=== PATIENT | female | born 1935 | race Caucasian/White ===

== ENCOUNTER 2017-09-24 01:09 | Emergency (ER) | payer MEDICARE ==
[2017-09-24 02:26] LABS: INR 3.15 (0.85-1.15); PARTIAL THROMBOPLASTIN TIME 36.5 SEC (26.3-35.5); PROTHROMBIN TIME 32.3 SEC (9.6-11.6)
[2017-09-24 02:33] LABS: CARBON DIOXIDE 26 mmol/L (21-32); CHLORIDE 103 mmol/L (101-111); CREATININE 0.8 mg/dL (0.5-1.5); GLOMERULAR FILTR. RATE CALC 73 mL/min (>60); GLUCOSE,RANDOM 114 mg/dL (70-105); POTASSIUM 4.6 mmol/L (3.5-5.1); SODIUM SERUM 138 mmol/L (136-145); UREA NITROGEN, BLOOD 12 mg/dL (7-18)
[2017-09-24 02:41] LABS: APPEARANCE,URINE TURBID (CLEAR); BILIRUBIN,URINE NEGATIVE (NEGATIVE); COLOR,URINE RED (YELLOW); GLUCOSE, URINE (UA) 100 mg/dL (NEGATIVE); KETONES,URINE 15 mg/dL (NEGATIVE); LEUKOCYTE ESTERASE ,URINE MODERATE (NEGATIVE); NITRATE,URINE POSITIVE (NEGATIVE); OCCULT BLOOD,URINE LARGE (NEGATIVE); PROTEIN,URINE >=300 (NEGATIVE)
[2017-09-24 02:41] LABS: HEMATOCRIT 34.7 % (36-48); MEAN CORPUSCULAR HEMOGLOBIN 32.6 pg (27.0-33.0); MEAN CORPUSCULAR HGB CONC 34.7 g/dL (32.0-36.0); MEAN CORPUSCULAR VOLUME 93.9 fL (79-99); PLATELET COUNT (AUTO) 136 K/uL (130-400); RED CELL DISTRIBUTION WIDTH 15.2 % (11.0-15.5); WHITE BLOOD COUNT (AUTO) 3.2 K/uL (4.8-10.8)
[2017-09-24 02:46] LABS: ALANINE AMINOTRANSFERASE 21 U/L (12-78); ALBUMIN 3.8 g/dL (3.5-5.0); ASPARTATE AMINOTRANSFERASE 25 U/L (10-37); BILIRUBIN,TOTAL 0.4 mg/dL (0.2-1.0); CREATINE KINASE MB < 0.5 ng/mL (0.5-3.6); CREATINE KINASE, TOTAL 51 U/L (21-232); TOTAL PROTEIN, SERUM 6.7 g/dL (6.0-8.3)
[2017-09-24 02:54] LABS: BACTERIA,URINE Few /HPF (None Seen); RBC,URINE TNTC /HPF (0-1); SQUAMOUS EPITHELIAL CELL,UR None Seen /LPF (0-2)
[2017-09-24 03:37] LABS: EOSINOPHILS % (MANUAL) 1 % (1-6); LYMPHOCYTES % (MANUAL) 15 % (22-44); MAN.DIFF COMMENT-IMPRESSION MANUAL DIFFERENTIAL; MONOCYTES % (MANUAL) 26 % (2-9); REACTIVE LYMPHOCYTES 14 % (0-0); SEGMENTED NEUTROPHILS % 44 % (40-70)
[2017-09-24 03:38] LABS: PLATELET MORPHOLOGY COMMENT ADEQUATE
[2017-09-24] MEDS ORDERED: SODIUM CHLORIDE 0.9% 1000ML 1,000 ML IV ONE (04:31)
[2017-09-24] MEDS ORDERED: CEFTRIAXONE SODIUM 1 GM ONE (04:31)
[2017-09-24] MEDS ORDERED: PHENAZOPYRIDINE HCL 200 MG TABLET ONE (04:32)
[2018-01-17] MEDS ORDERED: SIMV20TA6 PO (17:05)
[2018-01-17] MEDS ORDERED: HEPARIN SQ (17:05)
[2018-01-17] MEDS ORDERED: WARF-57 PO (17:05)
== END 2017-09-24 05:02 | disposition home or self-care (01) ==
LOC: EDH 01:09
DX: J98.11 Atelectasis (principal); R30.0 Dysuria; R31.9 Hematuria, unspecified; Z88.0 Allergy status to penicillin; Z88.6 Allergy status to analgesic agent
CPT/HCPCS: 36415; 71045; 71250; 80053; 81001; 82550; 82553; 84484; 85025; 85610; 85730; 87088; 93005; 96374; 99285; J0696; J7030

== ENCOUNTER → 2017-10-29 | Outpatient (CLI) | payer MEDICARE ==
[~2017-10-29] MED LIST: CLIN300C3 PO; HEPARIN SQ; SIMV20TA6 PO; TYL3 PO; WARF-57 PO
== END ==
LOC: RAH 11:04
PROVIDERS: ATTEND Orthopaedic Surgery
DX: M16.0 Bilateral primary osteoarthritis of hip (principal)
CPT/HCPCS: 73721

== ENCOUNTER → 2017-10-31 | Outpatient (CLI) | payer MEDICARE ==
[~2017-10-31] MED LIST changes: +IOPAMIDOL-370 75 ML VIAL IV ONE
== END | disposition home or self-care (01) ==
LOC: OIH 07:52
PROVIDERS: ATTEND Urology
DX: K80.20 Calculus of gallbladder without cholecystitis without obstruction (principal); N28.1 Cyst of kidney, acquired; K43.9 Ventral hernia without obstruction or gangrene; Z85.42 Personal history of malignant neoplasm of other parts of uterus
CPT/HCPCS: 74178; Q9967

== ENCOUNTER 2018-01-18 07:59 | Day surgery (SDC) | payer MEDICARE ==
[2018-01-17 16:19] LABS: BASOPHILS % (AUTO) 0.5 % (0.0-5.0); EOSINOPHILS % (AUTO) 1.1 % (0.0-8.0); HEMATOCRIT 32.3 % (36-48); LYMPHOCYTES % (AUTO) 39.4 % (21.0-51.0); MEAN CORPUSCULAR HEMOGLOBIN 31.6 pg (27.0-33.0); MEAN CORPUSCULAR VOLUME 92.8 fL (79-99); NUCLEATED RED BLOOD CELLS 0.1 % (0.0-0.19); PLATELET COUNT (AUTO) 144 K/uL (130-400); RED BLOOD CELL COUNT(AUTO) 3.48 MIL/uL (4.00-5.50); RED CELL DISTRIBUTION WIDTH 16.4 % (11.0-15.5); WHITE BLOOD COUNT (AUTO) 3.2 K/uL (4.8-10.8)
[2018-01-17 16:24] VITALS: BP 144/66
[2018-01-17 16:27] LABS: CREATININE 0.8 mg/dL (0.5-1.5); POTASSIUM 4.2 mmol/L (3.5-5.1)
[2018-01-17 17:47] LABS: INR 1.32 (0.85-1.15); PROTHROMBIN TIME 13.8 SEC (9.6-11.6)
[~2018-01-18] VITALS: Ht 162.6 cm; Wt 64.1 kg
[2018-01-18] VITALS (16 sets, daily range): BP systolic 113–139; BP diastolic 55–82
[~2018-01-18 07:59] MED LIST changes: -CLIN300C3 PO; -IOPAMIDOL-370 75 ML VIAL IV ONE; -TYL3 PO
[2018-01-18] MEDS ORDERED: WATER FOR INJECTION,STERILE 20 ML VIAL IJ ONE (08:00)
[2018-01-18] MEDS ORDERED: CEFAZOLIN SODIUM 1 GM VIAL IVP ONE (08:00)
[2018-01-18] MEDS ORDERED: LACTATED RINGERS 1000ML 1,000 ML IV ONE (09:13)
[2018-01-18] MEDS ORDERED: CLINDAMYCIN 900 MG/D5% WATER 50 ML IV ONE (09:13)
[2018-01-18] MEDS ORDERED: GLYCOPYRROLATE 0.2 MG/ML 5 ML VIAL ONE (09:37)
[2018-01-18] MEDS ORDERED: DEXAMETHASONE SOD PHOSPHATE 10MG/ML 1ML VIAL ONE (09:37)
[2018-01-18] MEDS ORDERED: ONDANSETRON HCL 4 MG/2 ML VIAL ONE (09:37)
[2018-01-18] MEDS ORDERED: LIDOCAINE PF 2% 5ML ABBOJECT ONE (09:37)
[2018-01-18] MEDS ORDERED: PROPOFOL 10 MG/ML 20ML VIAL IV ONE (09:38)
[2018-01-18] MEDS ORDERED: MIDAZOLAM HCL 1 MG/ML 2ML VIAL ONE (09:38)
[2018-01-18] MEDS ORDERED: FENTANYL CITRATE PF 50 MCG/1 ML 2ML VIAL ONE (09:38)
[2018-01-18] MEDS ORDERED: CEFAZOLIN SODIUM 1 GM VIAL ONE (10:00)
[2018-01-18] MEDS ORDERED: CLINDAMYCIN PHOSPHATE 150 MG/ML 6ML VIAL ONE (10:05)
[2018-01-18] MEDS ORDERED: CLIN300C3 PO (10:47)
[2018-01-18] MEDS ORDERED: TYL3 PO (10:47)
[2018-01-18] MEDS ORDERED: MEPERIDINE-PF 25 MG/ML SYG ONE ×2 (10:58→11:09)
== END 2018-01-18 12:40 | disposition home or self-care (01) ==
LOC: DAH 07:59
PROVIDERS: ATTEND Orthopaedic Surgery
DX: M70.62 Trochanteric bursitis, left hip (principal); M70.61 Trochanteric bursitis, right hip; M16.0 Bilateral primary osteoarthritis of hip; G89.29 Other chronic pain; Z85.42 Personal history of malignant neoplasm of other parts of uterus; Z79.899 Other long term (current) drug therapy; Z90.710 Acquired absence of both cervix and uterus; Z98.890 Other specified postprocedural states; Z80.49 Family history of malignant neoplasm of other genital organs; I10 Essential (primary) hypertension; Z79.01 Long term (current) use of anticoagulants; I34.0 Nonrheumatic mitral (valve) insufficiency; Z95.2 Presence of prosthetic heart valve; E78.00 Pure hypercholesterolemia, unspecified; I35.0 Nonrheumatic aortic (valve) stenosis; Z88.0 Allergy status to penicillin; Z88.8 Allergy status to other drugs, medicaments and biological substances
CPT/HCPCS: 27027; 27062; 36415; 80048; 85025; 85610; 88304; A6204; G0168; J1100; J2001; J2175 ×2; J2250; J2405; J2704; J3010; J3490 ×2; J7120; J0690

== ENCOUNTER 2018-07-19 06:15 | Day surgery (SDC) | payer MEDICARE ==
[2018-07-18 14:40] VITALS: BP 145/76
[2018-07-18 15:08] LABS: CREATININE 0.8 mg/dL (0.5-1.5); POTASSIUM 4.2 mmol/L (3.5-5.1)
[2018-07-18 15:12] LABS: INR 2.16 (0.85-1.15); PARTIAL THROMBOPLASTIN TIME 36.4 SEC (26.3-35.5); PROTHROMBIN TIME 22.3 SEC (9.6-11.6)
[2018-07-18 15:20] LABS: BASOPHILS % (AUTO) 0.3 % (0.0-5.0); EOSINOPHILS % (AUTO) 1.2 % (0.0-8.0); LYMPHOCYTES % (AUTO) 34.5 % (21.0-51.0); MEAN CORPUSCULAR HEMOGLOBIN 31.6 pg (27.0-33.0); MEAN CORPUSCULAR HGB CONC 33.4 g/dL (32.0-36.0); MEAN CORPUSCULAR VOLUME 94.6 fL (79-99); MONOCYTES % (AUTO) 28.6 % (3.0-13.0); NEUTROPHILS % (AUTO) 35.4 % (40.0-77.0); NUCLEATED RED BLOOD CELLS 0.1 % (0.0-0.19); PLATELET COUNT (AUTO) 137 K/uL (130-400); RED CELL DISTRIBUTION WIDTH 15.5 % (11.0-15.5); WHITE BLOOD COUNT (AUTO) 3.6 K/uL (4.8-10.8)
[2018-07-19] VITALS (18 sets, daily range): BP systolic 92–140; BP diastolic 41–73
[~2018-07-19] VITALS: Ht 160 cm; Wt 65.1 kg
[~2018-07-19 06:15] MED LIST changes: -HEPARIN SQ; -WARF-57 PO; +WARF5TAB76 PO
[2018-07-19] MEDS ORDERED: LACTATED RINGERS 1000ML 1,000 ML IV ONE (07:01)
[2018-07-19] MEDS ORDERED: CLINDAMYCIN 900 MG/D5% WATER 50 ML IV ONE (07:02)
[2018-07-19] MEDS ORDERED: IOPAMIDOL 10 ML VIAL ONE (07:42)
[2018-07-19] MEDS ORDERED: BUPIVACAINE/PF 0.5% 30ML VIAL ONE (07:43)
[2018-07-19] MEDS ORDERED: LIDOCAINE HCL-MPF 1% 5ML AMP IJ ONE (08:33)
[2018-07-19] MEDS ORDERED: PROPOFOL 10 MG/ML 20ML VIAL IV ONE (08:34)
== END 2018-07-19 11:20 | disposition home or self-care (01) ==
LOC: DAH 06:15 → SUH 06:15
PROVIDERS: ATTEND Orthopaedic Surgery
DX: M16.4 Bilateral post-traumatic osteoarthritis of hip (principal); G89.29 Other chronic pain; E78.5 Hyperlipidemia, unspecified; Z85.42 Personal history of malignant neoplasm of other parts of uterus; Z79.899 Other long term (current) drug therapy; Z98.890 Other specified postprocedural states; Z97.10 Presence of artificial limb (complete) (partial), unspecified; Z88.0 Allergy status to penicillin; Z88.8 Allergy status to other drugs, medicaments and biological substances
CPT/HCPCS: 20610; 36415; 77002; 80048; 85025; 85610; 85730; 93005; J1030; J2704; J3490 ×3; J7120; Q9966

== ENCOUNTER 2018-12-26 18:46 | Observation (INO) | payer MEDICARE ==
[~2018-12-26] VITALS: Ht 160 cm; Wt 64.6 kg
[~2018-12-26 18:46] MED LIST changes: +HEPARIN SQ; +TIMXE255OS OU; +WARF-57 PO; +WARF2.5T85 PO; -WARF5TAB76 PO
[2018-12-26 19:18] LABS: BASOPHILS % (AUTO) 0.5 % (0.0-5.0); EOSINOPHILS % (AUTO) 1.4 % (0.0-8.0); HEMATOCRIT 34.8 % (36-48); LYMPHOCYTES % (AUTO) 30.7 % (21.0-51.0); MEAN CORPUSCULAR HEMOGLOBIN 31.3 pg (27.0-33.0); MEAN CORPUSCULAR HGB CONC 34.3 g/dL (32.0-36.0); MEAN CORPUSCULAR VOLUME 91.4 fL (79-99); MONOCYTES % (AUTO) 22.7 % (3.0-13.0); NEUTROPHILS % (AUTO) 44.7 % (40.0-77.0); PLATELET COUNT (AUTO) 160 K/uL (130-400); RED BLOOD CELL COUNT(AUTO) 3.81 MIL/uL (4.00-5.50); RED CELL DISTRIBUTION WIDTH 16.6 % (11.0-15.5); WHITE BLOOD COUNT (AUTO) 6.1 K/uL (4.8-10.8)
[2018-12-26 19:27] LABS: CREATININE 0.9 mg/dL (0.5-1.5); POTASSIUM 4.1 mmol/L (3.5-5.1)
[2018-12-26] MEDS ORDERED: CEFTRIAXONE SODIUM 1 GM ONE (19:29)
[2018-12-26 19:31] LABS: ALBUMIN 4.3 g/dL (3.5-5.0); BILIRUBIN,TOTAL 0.4 mg/dL (0.2-1.0)
[2018-12-26 19:42] LABS: INR 2.64 (0.85-1.15); PARTIAL THROMBOPLASTIN TIME 40.3 SEC (26.3-35.5); PROTHROMBIN TIME 27.2 SEC (9.6-11.6)
[2018-12-26 19:47] LABS: B-TYPE NATRIURETIC PEPTIDE 143 pg/mL (0-100)
[2018-12-26] MEDS ORDERED: IOHEXOL-350 75 ML VIAL IV ONE (20:50)
[2018-12-27 00:40] VITALS: BP 106/71
[2018-12-27 03:01] LABS: HEMATOCRIT 34.1 % (36-48); MEAN CORPUSCULAR HEMOGLOBIN 31.4 pg (27.0-33.0); MEAN CORPUSCULAR HGB CONC 33.8 g/dL (32.0-36.0); MEAN CORPUSCULAR VOLUME 92.9 fL (79-99); NUCLEATED RED BLOOD CELLS 0.1 % (0.0-0.19); PLATELET COUNT (AUTO) 140 K/uL (130-400); RED BLOOD CELL COUNT(AUTO) 3.67 MIL/uL (4.00-5.50)
[2018-12-27 03:16] VITALS: BP 135/67
[2018-12-27 03:19] LABS: B-TYPE NATRIURETIC PEPTIDE 150 pg/mL (0-100)
[2018-12-27] MEDS: NITROGLYCERIN 1GM/1 INCH PACKET TD SCH ×2 (06:55→12:15)
[2018-12-27 08:00] VITALS: BP 153/81
--- NOTE | 2018-12-27 08:26 | NUR ---
Dr. Summers paged; pending call back, new consult for chest pain.
[2018-12-27 11:49] VITALS: BP 134/72
[2018-12-27 16:00] VITALS: BP 134/72
--- NOTE | 2018-12-27 18:35 | NUR ---
PT. D/C HOME USING TEACH BACK TECHNIQUE RE; NEW MEDS, HOME MEDS, S/S TO WATCH FOR AND WHEN TO CALL MD OR 911. AAOX3, IV OUT INTACT, NO CHEST PAIN AT THIS TIME, DENIES SOB. TELE REMOVED. AWARE TO FOLLOW UP WITH THE FOLLOWING; FOLLOW UP WITH YOUR PRIMARY DOCTOR IN 1-2 WEEKS. CALL TO SET UP AN APPOINTMENT SO HE CAN REFER YOU FOR A FOLLOW UP WITH YOUR DRUG ROOM OPERATOR IN 1-[address]. FOLLOW UP WITH DR. MULLIGAN IN 1-WEEK. CALL TO SET UP AN APPOINTMENT AT PHONE [phone]. CALL 911 IF SHORTNESS OF BREATH OR CHEST PAIN DOES NOT RESOLVE WITH REST. CONTINUE TAKING ALL CURRENT HOME MEDICATIONS BEFORE. AND MAKE SURE TO RESUME CHECKING PT/INR AT HOME BEFORE.
== END 2018-12-27 18:36 | disposition home or self-care (01) ==
LOC: EDH 18:46 → EDHIP 21:55 → INTOOBSV 21:55 → 4CH 12-27 00:29
PROVIDERS: ADMIT Internal Medicine; ATTEND Internal Medicine
DX: R07.89 Other chest pain (principal); H40.9 Unspecified glaucoma; K22.4 Dyskinesia of esophagus; Z79.01 Long term (current) use of anticoagulants; Z95.2 Presence of prosthetic heart valve; Z79.899 Other long term (current) drug therapy
CPT/HCPCS: 36415 ×2; 71045; 71275; 80053; 83690; 83880 ×2; 84484 ×3; 85025; 85027; 85378; 85610; 85730; 93005 ×3; 99284; G0378 ×21; J0696; Q9967

== ENCOUNTER → 2019-06-09 | Outpatient (CLI) | payer MEDICARE ==
[~2019-06-09] MED LIST changes: -HEPARIN SQ; +SIMV-43 PO; -SIMV20TA6 PO
== END | disposition home or self-care (01) ==
LOC: RAH 10:39
PROVIDERS: ATTEND Family Medicine
DX: Z12.31 Encounter for screening mammogram for malignant neoplasm of breast (principal)
CPT/HCPCS: 77067

== ENCOUNTER 2021-07-04 06:24 | Day surgery (SDC) | payer MEDICARE ==
[2021-07-01 09:51] LABS: BASOPHILS % (AUTO) 0.2 % (0.0-5.0); EOSINOPHILS % (AUTO) 1.4 % (0.0-8.0); HEMATOCRIT 32.9 % (36-48); LYMPHOCYTES % (AUTO) 35.1 % (21.0-51.0); MEAN CORPUSCULAR HEMOGLOBIN 31.3 pg (27.0-33.0); MEAN CORPUSCULAR HGB CONC 31.9 g/dL (32.0-36.0); MEAN CORPUSCULAR VOLUME 97.9 fL (79-99); MONOCYTES % (AUTO) 29.8 % (3.0-13.0); NEUTROPHILS % (AUTO) 32.5 % (40.0-77.0); PLATELET COUNT (AUTO) 123 K/uL (130-400); RED BLOOD CELL COUNT(AUTO) 3.36 MIL/uL (4.00-5.50); RED CELL DISTRIBUTION WIDTH 13.8 % (11.0-15.5); WHITE BLOOD COUNT (AUTO) 4.2 K/uL (4.8-10.8)
[2021-07-01 09:59] LABS: CREATININE 0.7 mg/dL (0.5-1.5); POTASSIUM 4.5 mmol/L (3.5-5.1)
[2021-07-01 12:44] VITALS: BP 147/66
[~2021-07-04] VITALS: Ht 160 cm; Wt 60.1 kg
[2021-07-04] VITALS (13 sets, daily range): BP systolic 82–143; BP diastolic 39–78
[~2021-07-04 06:24] MED LIST changes: -TIMXE255OS OU
[2021-07-04] MEDS ORDERED: CEFAZOLIN SODIUM 1 GM VIAL ONE (06:40)
[2021-07-04] MEDS ORDERED: LACTATED RINGERS 1000ML 1,000 ML IV ONE (06:40)
[2021-07-04] MEDS ORDERED: CLINDAMYCIN IVPB 900MG/50ML 50 ML IV ONE (07:11)
[2021-07-04] MEDS ORDERED: BUPIVACAINE/PF 0.5% 10ML VIAL ONE (07:21)
[2021-07-04] MEDS ORDERED: LIDOCAINE PF 100MG/5ML (2%) SYRINGE 5ML ONE (07:52)
[2021-07-04] MEDS ORDERED: MIDAZOLAM HCL 1 MG/ML 2ML VIAL ONE (07:52)
[2021-07-04] MEDS ORDERED: ONDANSETRON 4MG INJ ONE (07:52)
[2021-07-04] MEDS ORDERED: DEXAMETHASONE SOD PHOSPHATE 10MG/ML 1ML VIAL ONE (07:52)
[2021-07-04] MEDS ORDERED: PROPOFOL 10 MG/ML 20ML VIAL IV ONE (07:52)
[2021-07-04] MEDS ORDERED: FENTANYL CITRATE PF 50 MCG/1 ML 2ML VIAL ONE (07:52)
[2021-07-04] MEDS ORDERED: MEPERIDINE-PF 25 MG/ML SYG ONE (07:54)
[2021-07-04] MEDS ORDERED: IOPAMIDOL 10 ML VIAL ONE (08:12)
[2021-07-04] MEDS ORDERED: GLYCOPYRROLATE 1 MG/5 ML SYRINGE ONE (09:04)
== END 2021-07-04 10:05 | disposition home or self-care (01) ==
LOC: DAH 06:24
PROVIDERS: ATTEND Orthopaedic Surgery
DX: M16.11 Unilateral primary osteoarthritis, right hip (principal); G89.29 Other chronic pain; I25.10 Atherosclerotic heart disease of native coronary artery without angina pectoris; K21.9 Gastro-esophageal reflux disease without esophagitis; E78.5 Hyperlipidemia, unspecified; Z90.710 Acquired absence of both cervix and uterus; Z98.890 Other specified postprocedural states; Z79.899 Other long term (current) drug therapy; Z20.822 Contact with and (suspected) exposure to COVID-19
CPT/HCPCS: 20610; 36415; 77002; 80048; 85025; 87635; A4215; A4221; A4222; A4223; A4663; A5120; C9803; J1030; J1100; J2001; J2175; J2250; J2405; J2704; J3010; J3490 ×3; J7120; Q9966; 27093; J0690

== ENCOUNTER → 2021-10-04 | Outpatient (CLI) | payer MEDICARE | END | disposition home or self-care (01) | LOC: RAH 15:34 | PROVIDERS: ATTEND Physical Medicine & Rehabilitation | DX: M47.816 Spondylosis without myelopathy or radiculopathy, lumbar region (principal); M48.061 Spinal stenosis, lumbar region without neurogenic claudication; M41.86 Other forms of scoliosis, lumbar region; M43.5X6 Other recurrent vertebral dislocation, lumbar region; K80.20 Calculus of gallbladder without cholecystitis without obstruction; Z95.828 Presence of other vascular implants and grafts; Z88.6 Allergy status to analgesic agent; Z88.0 Allergy status to penicillin | CPT/HCPCS: 72114 ==

== ENCOUNTER 2021-12-30 06:26 | Day surgery (SDC) | payer MEDICARE ==
[2021-12-29 10:09] LABS: BASOPHILS % (AUTO) 0.2 % (0.0-5.0); EOSINOPHILS % (AUTO) 0.8 % (0.0-8.0); HEMATOCRIT 33.4 % (36-48); LYMPHOCYTES % (AUTO) 27.9 % (21.0-51.0); MEAN CORPUSCULAR HEMOGLOBIN 30.4 pg (27.0-33.0); MEAN CORPUSCULAR HGB CONC 32.3 g/dL (32.0-36.0); MEAN CORPUSCULAR VOLUME 94.1 fL (79-99); MONOCYTES % (AUTO) 27.1 % (3.0-13.0); PLATELET COUNT (AUTO) 120 K/uL (130-400); RED BLOOD CELL COUNT(AUTO) 3.55 MIL/uL (4.00-5.50); RED CELL DISTRIBUTION WIDTH 14.3 % (11.0-15.5)
[2021-12-29 10:26] LABS: CREATININE 0.7 mg/dL (0.5-1.5); POTASSIUM 4.7 mmol/L (3.5-5.1)
[2021-12-29 11:18] LABS: INR 2.57 (0.85-1.15); PROTHROMBIN TIME 26.6 SEC (9.6-11.6)
[2021-12-29 11:20] LABS: PARTIAL THROMBOPLASTIN TIME 36.5 SEC (26.3-35.5)
[2021-12-29 12:17] VITALS: BP 166/65
[~2021-12-30] VITALS: Ht 160 cm; Wt 57.8 kg
[2021-12-30] VITALS (15 sets, daily range): BP systolic 131–160; BP diastolic 51–74
[~2021-12-30 06:26] MED LIST changes: +CARV6.25 PO; +CLINDAMYCIN IVPB 900MG/50ML 50 ML IV ONE; +LACTATED RINGERS 1000ML 1,000 ML IV ONE; +OMEP20CA12 PO; -WARF2.5T85 PO; +WARF7.5T49 PO
[2021-12-30] MEDS ORDERED: WARF-57 PO (07:01)
[2021-12-30 07:35] LABS: INR 2.65 (0.85-1.15); PROTHROMBIN TIME 27.3 SEC (9.6-11.6)
[2021-12-30] MEDS ORDERED: LIDOCAINE HCL 1% MDV 50ML VIAL ONE (07:35)
[2021-12-30] MEDS ORDERED: BUPIVACAINE/PF 0.25% 30ML VIAL IJ ONE (07:35)
[2021-12-30] MEDS ORDERED: IOPAMIDOL 10 ML VIAL ONE (07:39)
[2021-12-30] MEDS ORDERED: PROPOFOL 10 MG/ML 20ML VIAL IV ONE (07:44)
[2021-12-30] MEDS ORDERED: SUCCINYLCHOLINE CHLORIDE 20 MG/ML 10 ML VIAL ONE (07:44)
[2021-12-30] MEDS ORDERED: CEFAZOLIN SODIUM 1 GM VIAL IVP ONE (08:00)
== END 2021-12-30 09:35 | disposition home or self-care (01) ==
LOC: DAH 06:26
PROVIDERS: ATTEND Student in an Organized Health Care Education/Training Program
DX: M16.11 Unilateral primary osteoarthritis, right hip (principal); E78.5 Hyperlipidemia, unspecified; Z79.899 Other long term (current) drug therapy; Z98.890 Other specified postprocedural states; Z79.01 Long term (current) use of anticoagulants; Z88.0 Allergy status to penicillin; Z90.49 Acquired absence of other specified parts of digestive tract; Z90.710 Acquired absence of both cervix and uterus; Z82.3 Family history of stroke; Z80.8 Family history of malignant neoplasm of other organs or systems; Z72.89 Other problems related to lifestyle
CPT/HCPCS: 20610; 36415 ×2; 73503; 80048; 85025; 85610 ×2; 85730 ×2; 87635; A4215; A4221; A4222; A4223; A4663; C9803; J0330; J1030; J2704; J3490 ×3; J7120; Q9966

== ENCOUNTER 2022-11-03 05:57 | Day surgery (SDC) | payer MEDICARE ==
[2022-11-01 10:09] VITALS: BP 173/67
[2022-11-01 10:19] LABS: BASOPHILS % (AUTO) 0.3 % (0.0-5.0); EOSINOPHILS % (AUTO) 1.1 % (0.0-8.0); HEMATOCRIT 32.8 % (36-48); LYMPHOCYTES % (AUTO) 36.7 % (21.0-51.0); MEAN CORPUSCULAR HGB CONC 32.9 g/dL (32.0-36.0); MEAN CORPUSCULAR VOLUME 94.3 fL (79-99); MONOCYTES % (AUTO) 27.2 % (3.0-13.0); NEUTROPHILS % (AUTO) 33.3 % (40.0-77.0); PLATELET COUNT (AUTO) 147 K/uL (130-400); RED BLOOD CELL COUNT(AUTO) 3.48 MIL/uL (4.00-5.50); RED CELL DISTRIBUTION WIDTH 14.4 % (11.0-15.5); WHITE BLOOD COUNT (AUTO) 3.7 K/uL (4.8-10.8)
[2022-11-01 10:49] LABS: CREATININE 0.7 mg/dL (0.5-1.5); CRP QUANTITATIVE 8.7 mg/L (0.00-9.0); POTASSIUM 4.7 mmol/L (3.5-5.1)
[2022-11-03] VITALS (14 sets, daily range): BP systolic 118–172; BP diastolic 52–85
[~2022-11-03] VITALS: Ht 160 cm; Wt 59.1 kg
[~2022-11-03 05:57] MED LIST changes: +ASPI-1005 PO; -CLINDAMYCIN IVPB 900MG/50ML 50 ML IV ONE; -LACTATED RINGERS 1000ML 1,000 ML IV ONE; +PHARMACY COMMUNICATION MISC SCH; -SIMV-43 PO; +TIMOLOL OU; -WARF7.5T49 PO
[2022-11-03] MEDS ORDERED: CEFAZOLIN SODIUM 1 GM VIAL IVPB SCH (06:00)
[2022-11-03] MEDS ORDERED: BUPIVACAINE/PF 0.25% 10ML VIAL IJ ONE ×2 (06:55→07:39)
[2022-11-03] MEDS ORDERED: MIDAZOLAM HCL 1 MG/ML 2ML VIAL ONE (07:28)
[2022-11-03] MEDS ORDERED: PROPOFOL 10 MG/ML 20ML VIAL IV ONE (07:29)
[2022-11-03] MEDS ORDERED: FENTANYL CITRATE PF 50 MCG/1 ML 2ML VIAL ONE (07:29)
[2022-11-03 07:30] LABS: INR 1.67 (0.85-1.15); PROTHROMBIN TIME 17.7 SEC (9.6-11.6)
[2022-11-03 07:31] LABS: PARTIAL THROMBOPLASTIN TIME 31.6 SEC (26.3-35.5)
[2022-11-03] MEDS ORDERED: IOHEXOL 180 MG/ML 20 ML VIAL ONE (07:38)
[2022-11-03] MEDS ORDERED: ISOVUE-300 100 ML VIAL IV ONE (07:39)
== END 2022-11-03 09:10 | disposition home or self-care (01) ==
LOC: DAH 05:57
PROVIDERS: ATTEND Student in an Organized Health Care Education/Training Program
DX: M16.11 Unilateral primary osteoarthritis, right hip (principal); Z20.822 Contact with and (suspected) exposure to COVID-19; G89.29 Other chronic pain; E78.5 Hyperlipidemia, unspecified; Z79.01 Long term (current) use of anticoagulants; Z79.899 Other long term (current) drug therapy; Z88.8 Allergy status to other drugs, medicaments and biological substances; Z88.0 Allergy status to penicillin
CPT/HCPCS: 87426; 82040; 80048; 85025; 84134; 86140; 36415 ×2; 93005; 20610; 85610; 85730; 77002; A4663; Q9967; J3010; J2250; J2704; J1030 ×2; J3490 ×2; A5120; A4215; A4223; A4222; A4221; Q9965

== ENCOUNTER → 2023-04-25 | Outpatient (CLI) | payer MEDICARE ==
[~2023-04-25] MED LIST changes: -PHARMACY COMMUNICATION MISC SCH
== END | disposition home or self-care (01) ==
LOC: RAH 08:20
PROVIDERS: ATTEND Family Medicine
DX: Z78.0 Asymptomatic menopausal state (principal)
CPT/HCPCS: 77080

== ENCOUNTER 2024-03-27 13:00 | Observation (INO) | payer MEDICARE ==
[~2024-03-27] VITALS: Ht 160 cm; Wt 53.2 kg
[~2024-03-27 13:00] MED LIST changes: -ASPI-1005 PO; -TIMOLOL OU
[2024-03-27 13:37] VITALS: BP 177/79; PULSE 63; RESP 18
[2024-03-27 13:38] LABS: BASOPHILS # (AUTO) 0.01 K/uL (0.00-0.20); BASOPHILS % (AUTO) 0.2 % (0.0-5.0); EOSINOPHILS # (AUTO) 0.07 K/uL (0.00-0.70); EOSINOPHILS % (AUTO) 1.3 % (0.0-8.0); HEMATOCRIT 27.4 % (36-48); IMMATURE GRANULOCYTE ABSOLUTE 0.06 K/uL (0-1); LYMPHOCYTES # (AUTO) 1.3 K/uL (1.0-4.8); MEAN CORPUSCULAR HEMOGLOBIN 30.2 pg (27.0-33.0); MEAN CORPUSCULAR HGB CONC 32.1 g/dL (32.0-36.0); MEAN CORPUSCULAR VOLUME 94.2 fL (79-99); MONOCYTES # (AUTO) 1.4 K/uL (0.1-1.0); MONOCYTES % (AUTO) 26.2 % (3.0-13.0); NEUTROPHILS # (AUTO) 2.5 K/uL (1.8-7.7); NEUTROPHILS % (AUTO) 47.2 % (40.0-77.0); PLATELET COUNT (AUTO) 163 K/uL (130-400); RED BLOOD CELL COUNT(AUTO) 2.91 MIL/uL (4.00-5.50); RED CELL DISTRIBUTION WIDTH 14.7 % (11.0-15.5); WHITE BLOOD COUNT (AUTO) 5.3 K/uL (4.8-10.8)
[2024-03-27 13:51] LABS: INR 2.51 (0.85-1.15); PROTHROMBIN TIME 25.3 SEC (9.6-11.6)
[2024-03-27 13:52] LABS: PARTIAL THROMBOPLASTIN TIME 35.9 SEC (26.3-35.5)
[2024-03-27 14:17] LABS: APPEARANCE,URINE CLEAR (CLEAR); BILIRUBIN,URINE NEGATIVE (NEGATIVE); COLOR,URINE LIGHT-YELLOW (YELLOW); GLUCOSE, URINE (UA) NEGATIVE (NEGATIVE); KETONES,URINE NEGATIVE (NEGATIVE); LEUKOCYTE ESTERASE ,URINE NEGATIVE Leu/uL (NEGATIVE); NITRATE,URINE NEGATIVE (NEGATIVE); OCCULT BLOOD,URINE MODERATE (NEGATIVE); PROTEIN,URINE NEGATIVE (NEGATIVE); UROBILINOGEN,URINE 0.2 mg/dL (0.2-1.0)
[2024-03-27] MEDS ORDERED: WARF2.5T85 PO (14:24)
[2024-03-27] MEDS ORDERED: SIMV-43 PO (14:25)
[2024-03-27 14:26] LABS: ADD UA MICROSCOPIC YES
[2024-03-27 14:28] LABS: SQUAMOUS EPITHELIAL CELL,UR RARE /HPF (0-2); WBC,URINE 0-1 /HPF (0-1)
[2024-03-27 15:35] LABS: ALBUMIN 3.7 g/dL (3.5-5.0)
[2024-04-02 06:20] VITALS: BP 133/87; PULSE 48; RESP 16
[2024-04-02 07:12] LABS: INR 1.31 (0.85-1.15); PROTHROMBIN TIME 13.9 SEC (9.6-11.6)
[2024-04-02 07:14] LABS: PARTIAL THROMBOPLASTIN TIME 32.3 SEC (26.3-35.5)
[2024-04-02] MEDS: ceFAZolin SODIUM 2 GM VIAL ONE (08:11)
[2024-04-02] MEDS: LACTATED RINGERS 1000ML 1,000 ML IV ONE (08:11)
== END 2024-04-02 08:00 | disposition home or self-care (01) ==
LOC: DAHIP 04-02 06:01
PROVIDERS: ADMIT Student in an Organized Health Care Education/Training Program; ATTEND Student in an Organized Health Care Education/Training Program
DX: M16.11 Unilateral primary osteoarthritis, right hip (principal); E78.5 Hyperlipidemia, unspecified; I10 Essential (primary) hypertension; I48.91 Unspecified atrial fibrillation; I34.0 Nonrheumatic mitral (valve) insufficiency; I35.0 Nonrheumatic aortic (valve) stenosis; I48.20 Chronic atrial fibrillation, unspecified; Z90.710 Acquired absence of both cervix and uterus; Z95.2 Presence of prosthetic heart valve; Z79.899 Other long term (current) drug therapy
CPT/HCPCS: 82040; 85025; 85610 ×2; 85730 ×2; 86850 ×2; 86900 ×2; 86901 ×2; 87086; 84134; 86140; 81001; 36415 ×2; 87641; 86923; G0378 ×2; G0379; A4663; J7120; A4215; A4223 ×2; A4213; A4222; A4221; A4216; J0690

== ENCOUNTER 2024-06-01 14:35 | Emergency (ER) | payer MEDICARE ==
[~2024-06-01] VITALS: Ht 160 cm; Wt 50.8 kg
[~2024-06-01 14:35] MED LIST changes: +SIMV-43 PO; +WARF2.5T85 PO
[2024-06-01] MEDS: LACTULOSE 20 GM/30 ML UDCUP PO ONE (15:37)
[2024-06-01] MEDS: BisaCODYL 10 MG SUPP.RECT RC ONE (16:25)
[2024-06-01 16:55] VITALS: BP 141/65; PULSE 64; RESP 16; TEMP 98.1; O2SAT 97
[2024-06-01] MEDS ORDERED: GOLY4L PO (16:57)
== END 2024-06-01 17:12 | disposition home or self-care (01) ==
LOC: EDH 14:35
DX: K59.09 Other constipation (principal); I50.9 Heart failure, unspecified; Z79.899 Other long term (current) drug therapy; Z98.890 Other specified postprocedural states
CPT/HCPCS: 74018

== ENCOUNTER → 2024-06-19 | Outpatient (CLI) | payer MEDICARE ==
[~2024-06-19] MED LIST changes: +GOLY4L PO
--- NOTE | 2024-06-23 16:29 | HMCSR ---
APPROVED REPORT EXAM: Two-dimensional and M-mode echocardiogram with Doppler and color Doppler. INDICATION ICD: Presence of prosthetic heart valve Z95.2 2D Dimensions RVDd4.0 cmLVEF(%)65.6 (>50%)LVED Vol(simp.)71.0 mL IVSd1.2 (0.7-1.1cm)FS(%)36 %LVES Vol(simp.)23.6 mL LVDd4.2 (3.8-5.6cm)LA (2D)3.2 (1.6-4.0cm)LVEF(%, simp.)67 % PWd1.2 (0.7-1.1cm)Ao Root(2D)2.3 (2.0-3.7cm)LA ESV INDEX (4CH)69.60 mL/m2 IVSs1.5 cmLVOT diam1.6 (1.8-2.4cm)LA ESV INDEX (2CH)76.40 mL/m2 LVDs2.7 (2.5-4.0cm)IVC diam2.1 cmLA ESV INDEX (BP)70.30 mL/m2 PWs1.6 cm M-Mode Dimensions Ao Root(MM)2.6 (2.0-3.7cm) Aortic Valve AoV VTI0.4 mAo Mean GR5.0 mmHgLVOT Vmax11.4 m/s ROSEMARIE (VMAX)1.3 cm2Al P1/2T410 msLVOT VTI0.25 m ROSEMARIE (VTI) 1.3 cm2 Mitral Valve MV E Aojb821.4 cm/sDECEL Kgxf588 ms MV A Vmax48.4 cm/sP 1/2 T56 ms E/A ratio3.0MVA (PHT)3.9 cm2 MR Max PG265 mmHg TDI E/E' Hydsgv86.5E/E' Icsjdlm48.0 Medial E' Peak V4.40 cm/sLateral E' Peak V6.70 cm/s Tricuspid Valve TR Vmax2.9 m/s TR Peak GR33.1 mmHg Left Ventricle The left ventricle is normal size. Mild concentric left ventricular hypertrophy. LVEF is 65-70%. The left ventricular diastolic function is normal. Right Ventricle The right ventricle is normal size. Right ventricular systolic function is mildly reduced. Atria The left atrium is severely dilated. The right atrium size is normal. Aortic Valve Prosthetic aortic valve is normal in appearance and well seated. Mild aortic perivalvular leak. Mild aortic regurgitation. There is no aortic valvular stenosis. Mitral Valve The prosthetic mitral valve is not well visualized due to imaging artifacts from the prosthesis. Ther e is mild mitral regurgitation. There is no mitral valve stenosis. Tricuspid Valve The tricuspid valve is normal in structure. There is trace tricuspid valve regurgitation noted. Pulmonic Valve The pulmonary valve is normal in structure. There is no pulmonic valvular regurgitation. Great Vessels The aortic root is normal in size. The IVC is normal in size and collapses >50% with inspiration. Pericardium There is no pericardial effusion. Conclusion The left ventricle is normal size. LVEF is 65-70%. The left atrium is severely dilated. Prosthetic aortic valve is normal in appearance and well seated. Mild aortic regurgitation. The prosthetic mitral valve There is mild mitral regurgitation.
== END | disposition home or self-care (01) ==
LOC: RAH 14:02
PROVIDERS: ATTEND Internal Medicine Cardiovascular Disease
DX: I08.0 Rheumatic disorders of both mitral and aortic valves (principal); Z95.2 Presence of prosthetic heart valve
CPT/HCPCS: 93306

== ENCOUNTER 2024-08-02 11:19 | Emergency (ER) | payer MEDICARE ==
[~2024-08-02] VITALS: Ht 160 cm; Wt 49.0 kg
--- NOTE | 2024-08-02 11:45 | ERN ---
ED Note History of Present Illness Stated Complaint: HIP PAIN Chief Complaint: Hip Pain/Injury Time Seen by MD: 11:27 Dictation: This 89-year-old female is brought in by EMS because of acute exacerbation of chronic right hip pain. Patient states with the last few days any movement she makes and especially trying to walk with her walker has it cause severe right hip pain limiting her activities of daily living. She denies any recent falls, she denies fever chills or sweats, she denies any distal weakness, numbness or tingling or change in the skin in the area of the hip. She denies chest pain or shortness of breath, abdominal complaints or urinary c omplaints. She denies dizziness or lightheadedness. She has not had syncope or back pain The patient reports that she is scheduled to have surgery on the the right hip August [address] Xiong but the surgery has already been put off once because they found abnormalities in the aortic valve. 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 She has been followed by Dr. Summers and had an echo last month and has been doing well. The patient has already had the left hip replaced. She lives at home with her . She does not smoke drink use recreational drugs. She has been using plain Tylenol. She does have some Voltaren which is helpful but she has not used it because of the Coumadin she takes for her valve. Her reports that her INR was greater than four this morning and they plan to hold the Coumadin tonight and check again tomorrow Allergies: Coded Allergies: No Known Drug Allergies (Unverified Allergy, Unknown, 11/01/22) Home Meds Active Scripts Peg 3350/Na Sulf,Bicarb,Cl/KCl (Golytely/Colyte Soln) 236-22.74G Soln, 4000 ML PO AD, #1 UNIT MIXED BOTTLE DIRECTED WITH WATER. DRINK ONE CUP EVERY 10-15 MINUTES UNTIL STOOLS ARE CLEAR. Prov:MARRY GIBSON CASTING CHIPPER 06/01/24 Reported Medications Simvastatin (Simvastatin) 20 Mg Tablet, 20 MG PO HS, TAB 03/27/24 Warfarin Sodium (Warfarin Sodium) 2.5 Mg Tablet, 2.5 MG PO NOON, TAB EVERY SUN/FRANK/SAT 03/27/24 Warfarin Sodium (Warfarin Sodium) 5 Mg Tablet, 5 MG PO NOON, TAB EVERY SUN/SUN/SUN/SUN 12/30/21 Omeprazole (Omeprazole) 20 Mg Capsule.dr, 20 MG PO DAILY, CAP 12/29/21 Carvedilol (Carvedilol) 6.25 Mg Tablet, 6.25 MG PO BID, TAB 12/29/21 Past Medical History Past Medical History: Heart Disease Surgical History: Other Surgical History Other: MITRAL AND AORTIC VALVE REPLACEMENT History: Not Applicable Review of System Dictation All pertinent systems reviewed, negative except as documented in the HPI The ROS is obtained from patient GENERAL/CONSTITUTIONAL: Negative except as documented in HPI. ENT: Negative except as documented in HPI. CARDIOVASCULAR: Negative except as documented in HPI. RESPIRATORY: Negative except as documented in HPI. GASTROINTESTINAL: Negative except as documented in HPI. GENITOURINARY: Negative except as documented in HPI. MUSCULOSKELETAL: Negative except as documented in HPI. SKIN: Negative except as documented in HPI. NEUROLOGIC: Negative except as documented in HPI. Initial Vital Sign VS Vital Signs Date Time Temp Pulse Resp B/P (MAP) Pulse Ox O2 Delivery O2 Flow Rate FiO2 08/02/24 11:24 98.1 58 16 185/98 Room Air 08/02/24 12:35 97 0 21 Physical Exam Dictation VITAL SIGNS: note is made of triage vital signs CONSTITUTIONAL: This is an elderly frail patient who is awake, alert, and appropriately interactive. HEAD: Normocephalic, Atraumatic. EYES: Periorbital areas with no swelling, redness, or edema. Lids and lashes are normal. Conjunctival injection is absent. Sclera anicteric. Pupils equal, round, reactive to light. ENT: No nasal discharge noted. Posterior pharynx is without exudate, redness, swelling, masses, or evidence of obstruction. Uvula midline. Mucous membranes moist. NECK: Trachea midline, no masses palpated, and no cervical lymphadenopathy. No swelling. Supple, full range of motion without nuchal rigidity. No vertebral point tenderness. No meningismus. CHEST/AXILLA: Normal chest wall appearance and motion. No tenderness. No crepitus. CV: Regular with a mechanical aortic valve sound. No edema RESPIRATORY:Respiratory rate is normal. Bilateral equal breath sounds with good airflow. Normal breath sounds are noted. No rales, rhonchi or wheezes noted. No increased work of breathing, no retractions. ABDOMEN: Inspection normal. No distention is appreciated. Bowel sounds are normal. No mass or organomegaly is appreciated. There is no tenderness. No rebound. No rigidity. No voluntary or involuntary guarding. BACK: Inspection is normal. No midline tenderness is appreciated. The patient appears comfortable when moving. : No CVA tenderness or bladder tenderness. SKIN: Warm, dry, with normal turgor. Capillary refill less than 3 seconds. Normal color.No rash. No cellulitis or abscess. No evidence of acute injury. MS/Extremity: There is no calf tenderness. There is pain on range of motion of the hip but no limitation and no deformity.. There are no distal signs of poor perfusion, swelling or weakness NEURO: Awake and alert, lucid. Facies symmetric and speech is clear. Motor strength 5/5 in all extremities. Sensory grossly intact. PSYCH: Patient is appropriately attentive and cooperative without evidence of hallucination. Results (Laboratory/Radiology) Laboratory/Radiology Laboratory Tests Test 08/02/24 11:55 White Blood Count 4.4 K/uL (4.8-10.8) L Red Blood Count 3.11 MIL/uL (4.00-5.50) L Hemoglobin 8.8 g/dL (12.0-16.0) L Hematocrit 27.1 % (36-48) L Mean Corpuscular Volume 87.1 fL (79-99) Mean Corpuscular Hemoglobin 28.3 pg (27.0-33.0) Mean Corpuscular Hemoglobin Concent 32.5 g/dL (32.0-36.0) Red Cell Distribution Width 16.6 % (11.0-15.5) H Platelet Count 129 K/uL (130-400) L Mean Platelet Volume 9.6 fL (7.5-10.5) Immature Granulocyte % (Auto) 0.7 % (0-1) Neutrophils (%) (Auto) 36.4 % (40.0-77.0) L Lymphocytes (%) (Auto) 29.9 % (21.0-51.0) Monocytes (%) (Auto) 31.7 % (3.0-13.0) H Eosinophils (%) (Auto) 1.1 % (0.0-8.0) Basophils (%) (Auto) 0.2 % (0.0-5.0) Neutrophils # (Auto) 1.6 K/uL (1.8-7.7) L Lymphocytes # (Auto) 1.3 K/uL (1.0-4.8) Monocytes # (Auto) 1.4 K/uL (0.1-1.0) H Eosinophils # (Auto) 0.05 K/uL (0.00-0.70) Basophils # (Auto) 0.01 K/uL (0.00-0.20) Absolute Immature Granulocyte (auto 0.03 K/uL (0-1) Nucleated Red Blood Cells 0.0 % (0.0-0.19) White Cell Morphology Comment See comments Prothrombin Time 43.0 SEC (9.6-11.6) *H Prothromb Time International Ratio 4.45 (0.85-1.15) *H Sodium Level 135 mmol/L (136-145) L Potassium Level 4.1 mmol/L (3.5-5.1) Chloride Level 96 mmol/L (101-111) L Carbon Dioxide Level 30 mmol/L (21-32) Blood Urea Nitrogen 9 mg/dL (7-18) Creatinine 0.7 mg/dL (0.5-1.0) Glomerular Filtration Rate Calc 83 mL/min (>90) Random Glucose 83 mg/dL (70-105) Total Calcium 8.9 mg/dL (8.5-10.1) Total Bilirubin 0.5 mg/dL (0.2-1.0) Aspartate Amino Transf (AST/SGOT) 16 U/L (10-37) Alanine Aminotransferase (ALT/SGPT) 13 U/L (12-78) Alkaline Phosphatase 64 U/L (50-136) Total Protein 7.1 g/dL (6.0-8.3) Albumin 3.5 g/dL (3.5-5.0) EKG Comment: Time reviewed: 11:13 a.m. EKG number; 1 Rate and rhythm: Sinus bradycardia at 55 beats per minute with the occasional PAC Riley: Right axis deviation Morphology: Poor R-wave progression across the precordium IA interval: normal QT interval: normal ST/Twaves: Nonspecific STT wave changes inferiorly borderline in ST-elevation anterolateral no obvious STEMI Impression: Sinus bradycardia without evidence of an acute ST-elevation myocardial infarction Comparison EKG: none EKG INTERPRETATION by Dr. Nii Johnson ED Course ED Course Orders Procedure Category Date Status Time 12 Lead Ekg Tracing- EKG 08/02/24 Logged Technical 11:31 Cbc With Differential LAB 08/02/24 Complete 11:31 Comprehensive LAB 08/02/24 Complete Metabolic Panel 11:31 Hip Unilat 2-3vw Right RAD 08/02/24 Resulted 11:34 Prothrombin Time With LAB 08/02/24 Complete INR 11:48 Morphine 2mg Syg PHA 08/02/24 Complete (Morphine 2mg Syg) 12:00 Current Medications Medications (Trade) Dose Ordered Sig/Abigail Route PRN Reason Start Time Stop Time Status Last Admin Dose Admin Morphine Sulfate (morPHINE 2MG SYG) 2 mg ONCE ONCE IVP 08/02/24 12:00 08/02/24 12:01 DC 08/02/24 12:09 Vital Signs Date Time Temp Pulse Resp B/P (MAP) Pulse Ox O2 Delivery O2 Flow Rate FiO2 08/02/24 13:55 97.2 63 16 146/57 97 Room Air* 0 21 08/02/24 12:35 54 16 162/54 97 Room Air* 0 21 08/02/24 11:24 98.1 58 16 185/98 Room Air Medical Decision Making MDM INITIAL IMPRESSION Initial history and physical concerning for acute exacerbation of chronic pain rule out occult fracture, rule out other etiologies such as infection or bleed Contributing medical problems: The patient reports she has chronic anemia and in fact an old hemoglobin from a previous visit is also 8.8. She is very comfortable managing her INR at home as she has been taking Coumadin for 20 years. She does report that she is able to take Tylenol codeine without difficulty I have reviewed the triage nursing notes and vital signs. Patient's blood pressure is high today which she states is most likely related to her pain Initial plan: Pain management, screening for acute changes DATA REVIEW I have reviewed additional NN, repeat VS, and monitoring where indicated. Heart rate, blood pressure, and O2 saturation are acceptable. Castaneda diagnostic results: The patient's hemoglobin is 8.8 and hematocrit is 27.1. White count is 4.4 and the platelets are 129. INR is 4.45 with a maximum expected for valve protection 3.5. Chemistries are normal except for sodium of 135 The right hip film is negative for any occult fractures per radiology reading Other independent historian: none Review of external data: I reviewed the patient's previous labs due to her anemia ED COURSE Interventions: The patient received some morphine for pain and had received aspirin because the hospice/home health aide was concerned about acute coronary syndrome. On careful questioning the patient never had chest pain or shortness of breath but she felt that the aspirin did give her some relief. Reassessment: She is improved and able to take a few steps. She feels comfort able to go home with some Tylenol codeine and keep her appointment with Dr. Xiong for preop DISPOSITION Final diagnostic impression: Acute exacerbation of chronic right hip pain, history of aortic valve replacement, chronic anemia, over anticoagulation I discussed my findings, clinical impression and treatment recommendations with patient and her spouse. I have reviewed the social factors contributing to the patient's presentation and disposition planning. My final plan for disposition was made based upon clinical findings, response to treatment and discussion with the patient regarding management options. Hospitalization is not indicated due to low risk of short term progression, complication, morbidity or mortality related to the current diagnosis At the time of discharge, the vital signs are within acceptable limits. Repeat examination: Patient is more comfortable and able to walk enough to get around the house with her walker. The discharge treatment plan includes the use of Tylenol codeine judiciously and Voltaren. I discussed the side effects of Tylenol codeine and Voltaren as well as management of the INR and the presence of her anemia. Incidental findings discussed: Anemia and over anticoagulation, these were addressed with the patient and the spouse Questions were invited and answered in layman's terms. I have emphasized my follow-up recommendations and reviewed ED return precautions. I have answered any questions in layman's terms. The patient understands that they will have to arrange for out-patient follow-up for recheck of today's condition. The patient is stable and appropriate for discharge from the ED. This dictation was prepared using Klatcher voice recognition software. Occasional voice recognition errors may occur. When identified, these errors have been corrected. While every attempt is made to correct errors during dictation, errors may still exist. DX & DISP Disposition: Discharge Decision to Admit Date: Aug 02, 2024 Decision to Admit Time: 14:25 Departure Impression: Primary Impression: Acute exacerbation of chronic right hip pain Additional Impressions: Osteoarthritis of right hip, Over-anticoagulated, Chronic anemia Condition: Stable Scripts Acetaminophen with Codeine (Acetaminophen-Cod #3 Tablet) 300 Mg-30 Mg Tablet 1 TAB PO Q6H PRN for PAIN, #20 TAB 0 Refills Prov: NII JOHNSON MD 08/02/24 Additional Instructions: Use Tylenol codeine one tablet along with one regular strength tablet every 6 hours as needed for severe pain. This medication can make you dizzy or lightheaded, depressed your respirations and cause nausea and constipation. Start using febrile or Metamucil available [id number] on a regular basis while taking this medication. Hold your Coumadin for 24 hours and recheck the INR tomorrow. Follow up as planned with Dr. Xiong for preoperative evaluation. Return to the emergency department for new or worsening symptoms Referrals: UMAIR OCHOA MD (PCP) Time of Disposition: 14:29 NII JOHNSON MD Aug 02, 2024 11:45
[2024-08-02 12:08] LABS: BASOPHILS # (AUTO) 0.01 K/uL (0.00-0.20); BASOPHILS % (AUTO) 0.2 % (0.0-5.0); EOSINOPHILS # (AUTO) 0.05 K/uL (0.00-0.70); EOSINOPHILS % (AUTO) 1.1 % (0.0-8.0); HEMATOCRIT 27.1 % (36-48); IMMATURE GRANULOCYTE ABSOLUTE 0.03 K/uL (0-1); LYMPHOCYTES # (AUTO) 1.3 K/uL (1.0-4.8); LYMPHOCYTES % (AUTO) 29.9 % (21.0-51.0); MEAN CORPUSCULAR HEMOGLOBIN 28.3 pg (27.0-33.0); MEAN CORPUSCULAR HGB CONC 32.5 g/dL (32.0-36.0); MEAN CORPUSCULAR VOLUME 87.1 fL (79-99); MONOCYTES # (AUTO) 1.4 K/uL (0.1-1.0); MONOCYTES % (AUTO) 31.7 % (3.0-13.0); NEUTROPHILS # (AUTO) 1.6 K/uL (1.8-7.7); NEUTROPHILS % (AUTO) 36.4 % (40.0-77.0); PLATELET COUNT (AUTO) 129 K/uL (130-400); RED BLOOD CELL COUNT(AUTO) 3.11 MIL/uL (4.00-5.50); RED CELL DISTRIBUTION WIDTH 16.6 % (11.0-15.5); WHITE BLOOD COUNT (AUTO) 4.4 K/uL (4.8-10.8)
[2024-08-02] MEDS: morPHINE 2 MG SYG IVP ONE (12:09)
[2024-08-02 12:25] LABS: CREATININE 0.7 mg/dL (0.5-1.0); POTASSIUM 4.1 mmol/L (3.5-5.1)
[2024-08-02 12:28] LABS: INR 4.45 (0.85-1.15)
[2024-08-02 12:32] LABS: ALBUMIN 3.5 g/dL (3.5-5.0); BILIRUBIN,TOTAL 0.5 mg/dL (0.2-1.0); TOTAL PROTEIN, SERUM 7.1 g/dL (6.0-8.3)
--- NOTE | 2024-08-02 13:01 | HMCIMG ---
HIP UNILAT 2-3VW RIGHT HISTORY: Pain COMPARISON: None TECHNIQUE: 2 images of right hip were obtained. FINDINGS: There is no acute displaced fracture or dislocation. Right hip joint space narrowing is seen with destructive changes. Clinical correlation is recommended. Vascular calcifications are seen. Degenerative changes are seen. IMPRESSION: 1. Findings as described above.
[2024-08-02] MEDS ORDERED: ACET-2079 PO (14:28)
[2024-08-02 14:46] VITALS: BP 146/64; PULSE 68; RESP 16; TEMP 98; O2SAT 97
--- NOTE | 2024-08-03 03:27 | EKG ---
[facility] Test Date: 2024-08-02 Test Time: 11:11:39 Pat Name: ERICKSON SINHA Department: ED Room: Gender: F Lab Scientist: [id number] Requested By: NII LEVY Order Number: [id number] Reading MD: Elmer Houser Measurements Intervals [place] Rate: 55 P: -27 TX: 141 QRS: 107 QRSD: 104 T: -12 QT: 471 QTc: 446 Interpretive Statements Sinus rhythm Atrial premature complex Right axis deviation Nonspecific repol abnormality, inferior leads Borderline ST elevation, anterolateral leads, due to LVH Compared to ECG 11/01/2022 08:41:54 Atrial premature complex(es) now present Right-axis deviation now present Early repolarization now present Left anterior fascicular block no longer present Myocardial infarct finding no longer present ST (T wave) deviation still present Electronically Signed On 08-03-2024 21:34:45 CHALK MOLDING MACHINE OPERATOR by Elmer Houser Please click the below link to view image of tracing.
== END 2024-08-02 14:47 | disposition home or self-care (01) ==
LOC: EDH 11:19
DX: G89.29 Other chronic pain (principal); M25.551 Pain in right hip; M16.11 Unilateral primary osteoarthritis, right hip; D64.9 Anemia, unspecified; Z79.01 Long term (current) use of anticoagulants; Z79.899 Other long term (current) drug therapy; Z95.2 Presence of prosthetic heart valve
CPT/HCPCS: 99285; 96374; 80053; 85025; 85610; 36415; 73502; 93005; J2270

== ENCOUNTER 2024-08-11 06:25 | Inpatient (IN) | payer MEDICARE ==
[2024-08-07 10:44] LABS: BASOPHILS # (AUTO) 0.02 K/uL (0.00-0.20); BASOPHILS % (AUTO) 0.4 % (0.0-5.0); EOSINOPHILS # (AUTO) 0.07 K/uL (0.00-0.70); EOSINOPHILS % (AUTO) 1.4 % (0.0-8.0); HEMATOCRIT 27.6 % (36-48); IMMATURE GRANULOCYTE ABSOLUTE 0.02 K/uL (0-1); LYMPHOCYTES # (AUTO) 1.2 K/uL (1.0-4.8); LYMPHOCYTES % (AUTO) 24.3 % (21.0-51.0); MEAN CORPUSCULAR HEMOGLOBIN 28.9 pg (27.0-33.0); MEAN CORPUSCULAR HGB CONC 32.2 g/dL (32.0-36.0); MEAN CORPUSCULAR VOLUME 89.6 fL (79-99); MONOCYTES # (AUTO) 1.6 K/uL (0.1-1.0); MONOCYTES % (AUTO) 32.7 % (3.0-13.0); NEUTROPHILS % (AUTO) 40.8 % (40.0-77.0); PLATELET COUNT (AUTO) 146 K/uL (130-400); RED BLOOD CELL COUNT(AUTO) 3.08 MIL/uL (4.00-5.50); RED CELL DISTRIBUTION WIDTH 17.2 % (11.0-15.5); WHITE BLOOD COUNT (AUTO) 4.9 K/uL (4.8-10.8)
[2024-08-07 10:47] LABS: APPEARANCE,URINE CLEAR (CLEAR); BILIRUBIN,URINE NEGATIVE (NEGATIVE); COLOR,URINE LIGHT-YELLOW (YELLOW); GLUCOSE, URINE (UA) NEGATIVE (NEGATIVE); KETONES,URINE NEGATIVE (NEGATIVE); LEUKOCYTE ESTERASE ,URINE 25 Leu/uL (NEGATIVE); NITRATE,URINE NEGATIVE (NEGATIVE); OCCULT BLOOD,URINE MODERATE (NEGATIVE); PH,URINE 5.5 (5.0-8.0); PROTEIN,URINE 10 mg/dL (NEGATIVE); UROBILINOGEN,URINE 0.2 mg/dL (0.2-1.0)
[2024-08-07 10:49] LABS: ADD UA MICROSCOPIC YES
[2024-08-07 10:51] LABS: BACTERIA,URINE RARE /HPF (None Seen); SQUAMOUS EPITHELIAL CELL,UR RARE /HPF (0-2)
[2024-08-07 10:56] LABS: ALBUMIN 3.6 g/dL (3.5-5.0); CREATININE 0.7 mg/dL (0.5-1.0); POTASSIUM 4.4 mmol/L (3.5-5.1)
[2024-08-07 11:05] LABS: PARTIAL THROMBOPLASTIN TIME 42.1 SEC (26.3-35.5)
[2024-08-07 11:07] LABS: INR 5.45 (0.85-1.15); PROTHROMBIN TIME 51.6 SEC (9.6-11.6)
[2024-08-07 11:11] VITALS: BP 185/100; PULSE 64; RESP 18; TEMP 97.4
--- NOTE | 2024-08-07 11:20 | NUR ---
REPORT DR JOHNSON INFORMED OF COAGS/H&H / UA/ CRP ALSO INFORMED LAST DOSE OF WARFARIN TAKEN AND HEPARIN PENDING FOR CHARMAINE AND EULALIA. OK TO PROCEED AND RECHECK INR AM OF SURGERY
[~2024-08-11] VITALS: Ht 160 cm; Wt 49.4 kg
[2024-08-11] VITALS (31 sets, daily range): BP systolic 117–174; BP diastolic 50–73; PULSE 60–79; RESP 14–20; TEMP 97.4–98.4; O2SAT 96–97
[~2024-08-11 06:25] MED LIST changes: +ACET-2079 PO; +ASPI-1197 PO; -CARV6.25 PO; -GOLY4L PO; +HEPARIN SQ; +TIMO5SOL10 OP
[2024-08-11 07:29] LABS: INR 1.61 (0.85-1.15); PROTHROMBIN TIME 17.2 SEC (9.6-11.6)
[2024-08-11] MEDS: ceFAZolin SODIUM 2 GM VIAL ONE (07:43)
[2024-08-11] MEDS: LACTATED RINGERS 1000ML 1,000 ML IV ONE (07:43)
[2024-08-11] MEDS ORDERED: LIDOCAINE PF 100MG/5ML (2%) SYRINGE 5ML ONE (09:01)
[2024-08-11] MEDS ORDERED: proPOFol 10 MG/ML 20ML VIAL IV ONE (09:01)
[2024-08-11] MEDS ORDERED: MIDAZOLAM HCL 1 MG/ML 2ML VIAL ONE (09:02)
[2024-08-11] MEDS ORDERED: FENTanyl CITRate PF 50 MCG/1 ML 2ML VIAL ONE ×2 (09:02→12:22)
[2024-08-11] MEDS ORDERED: rocuRONium bROMide 10MG/1ML 5ML VL ONE (09:02)
[2024-08-11] MEDS ORDERED: ketaMINE HCL 100 MG/ML 5ML VIAL IJ ONE (09:11)
[2024-08-11] MEDS ORDERED: ePHEDrine SULFate 50 MG/ML AMPULE ONE (09:33)
[2024-08-11] MEDS ORDERED: TRANEXAMIC ACID 1000MG/10ML ONE (09:51)
[2024-08-11] MEDS ORDERED: PoTASSium chloRIDE 20MEQ/100ML 100 ML IV PRN (10:00)
[2024-08-11] MEDS ORDERED: traMADol HCL 50 MG TABLET PO PRN (10:00)
[2024-08-11] MEDS ORDERED: CALCIUM CARB 500MG PO PRN (10:00)
[2024-08-11] MEDS ORDERED: PoTASSium chl 10% ELIXIR 20MEQ 20 MEQ/15 ML UDCUP PO PRN (10:00)
[2024-08-11] MEDS ORDERED: ketOROlac 15MG/ML VIAL (15MG/ML) IV SCH (10:00)
[2024-08-11] MEDS ORDERED: PoTASSium chloRIDE 20MEQ ER 20 MEQ ERTAB PO PRN (10:00)
[2024-08-11] MEDS ORDERED: FENTanyl CITRate PF 50 MCG/1 ML 5ML AMP IV ONE (10:14)
[2024-08-11] MEDS ORDERED: hydrALAZine 20MG/ML VIAL ONE (10:57)
[2024-08-11] MEDS ORDERED: GLYCOPYRROLATE 0.2 MG/ML 5 ML VIAL ONE (12:08)
[2024-08-11] MEDS ORDERED: NEOSTIGMINE METHYLSULFATE 1MG/ML IV ONE (12:08)
--- NOTE | 2024-08-11 12:22 | OP ---
Operative Note: DATE OF PROCEDURE: 08/11/24 SURGEON: IRINA JOHNSON MD AUTOMATIC EMBROIDERY MACHINE TENDER: Brittney Houser ANESTHESIA: General and fascia iliaca block ANESTHESIOLOGIST/GIMP TACKER: Pedro Avery CRNA PREOPERATIVE DIAGNOSIS: Right hip osteoarthritis POSTOPERATIVE DIAGNOSIS: Right hip osteoarthritis PROCEDURE: Right total hip arthroplasty ESTIMATED BLOOD LOSS: 450 cc INDICATIONS: 89-year-old female with right hip osteoarthritis failing conservative management. After discussion of the risks, benefits, and alternatives, the patient voluntarily agreed to undergo the aforementioned procedure. IMPLANTS: Chilel and Nephew 48 mm R3 shell with 6.5 screws x2 and central hole cover. A 0 degree XL PE liner, a [employer] size four standard offset stem with an Oxinium 32 mm minus three head DESCRIPTION OF PROCEDURE: Patient was properly identified in the preoperative holding area. Surgical site marking was verified and surgery consent reviewed. The patient was then taken to the operating room and placed in supine position on the OR table. After induction of general anesthesia, preoperative antibiotics were given. The patient was then transitioned in the lateral decubitus position with the right side up. All bony prominences were well-padded. Right lower extremity was then prepped and draped in the usual sterile fashion. Surgical time out was done verifying correct surgery, side, site, and location to be performed. We then began the procedure by making approximately 15 cm long incision centered over the greater trochanter. Here we came sharply through skin down to the fascia. Hemostasis was then achieved using Bovie electrocautery. We then incised fascia in line with the skin incision and finger split the tensor muscle proximally. We then placed our Charnley retractor. At this point we identified the vastus ridge and began elevating the full-thickness soft tissue flap off of the vastus ridge, splitting the vastus lateralis and gluteus muscles as necessary. We then proceeded to externally rotate the femur while making this flap. We resected part of the anterior capsule. The femoral head and neck was then delivered into view. We then dislocated the hip and performed a femoral neck osteotomy approximately half fingerbreadth proximal lesser trochanter. We then placed our retractors around the superior and anterior portion of the ac etabulum and began to remove the labrum circumferentially. We then began reaming the acetabulum where we reamed up to a size 47 ensuring appropriate anteversion and abduction. We then proceeded to trial with the size 48 acetabular component and this appeared to sit well. We opened our size 48 acetabular component and after irrigating out the wound malleted this into place. It appeared to have good press-fit however we elected to place two of the 6.5 mm screws as well. We drilled and filled the screws in standard fashion in the posterior superior portion of the cup. We then placed the manhole cover on the center of the cup. The wound was thoroughly irrigated out further and we placed the acetabular liner and impacted this in place in standard fashion. We then proceeded to reposition our retractors to elevate the proximal femur out of the wound. We then used the box chisel and canal finder to began preparing the femoral side and sequentially broached up to the aforementioned size stem. Once we felt we had good fit, fill, and control of the femur with the stem in place we then used our trial head component and reduce the hip. Upon reduction, we had appropriate soft tissue tensioning, limb length and stable range of motion. We therefore dislocated the hip once more removed our trial components thoroughly irrigated the out the wound and placed our final stem component in standard fashion. We noted that the final implant sat approximately 3 mm proud from the trial implant. We therefore elected to trial with the minus head option. With the minus head option, we felt we had appropriate soft tissue tensioning with the appropriate limb length and good stable range motion. We then dislocated the hip and removed the trial head and seated the actual implant for the femoral head in standard fashion. The hip was then reduced with the final components in place. It was found to be stable through range of motion with appropriate soft tissue tensioning and appropriate limb length. At this point we placed a bump under the knee and the foot on the male with a stack of towels to allow for internal rotation. We repaired the abductors back to the greater trochanter using #5 Ethibond. We then repaired the rent in the vastus lateralis and gluteus muscles using #1 Vicryl in a running fashion. We removed our Charnley retractor and began to repair the IT band using #1 Vicryl in interrupted [id number] fashion. At this point we began to close her subcutaneous tissue using 2-0 Vicryl. Running 3-0 Monocryl in subcuticular fashion with Dermabond placed over this for the skin. Island barrier dressing was then applied. Patient was returned to supine position with abduction pillow placed, awakened from anesthesia, and taken to the recovery room in stable condition. IRINA JOHNSON MD Aug 11, 2024 12:22
[2024-08-11] MEDS: acetaMINOPHEN 100 ML ONE (13:14)
[2024-08-11] MEDS: FENTanyl CITRate PF 50 MCG/1 ML 2ML VIAL ONE (13:14)
[2024-08-11] MEDS: ketOROlac 15MG/ML VIAL (15MG/ML) IV SCH (13:20)
[2024-08-11] MEDS: ondanSETRON 4MG INJ ONE (13:40)
[2024-08-11] MEDS: ketOROlac 15MG/ML VIAL (15MG/ML) ONE (13:40)
[2024-08-11] MEDS: GABApentin 100 MG CAPSULE PO SCH (14:03)
[2024-08-11] MEDS: CYCLOBENZAPRINE HCL 10 MG TABLET PO PRN (14:03)
--- NOTE | 2024-08-11 14:46 | HMCIMG ---
HIP BILAT 2VW REASON: S/P HIP SURGERY; COMPARING RT vs LT COMPARISON: None TECHNIQUE: AP pelvis and right hip views were obtained, 3 views FINDINGS: Bones of the pelvis appear intact. There are bilateral hip joint prostheses in place. There are no fractures in the remaining bone. Soft tissues appear unremarkable. IMPRESSION: 1. Bilateral hip joint prostheses in place.
[2024-08-11] MEDS: hydroMORPHone 1 MG INJ ONE (15:21)
--- NOTE | 2024-08-11 15:25 | HMCIMG ---
HIP UNILAT 4VW RIGHT REASON: RT total hip arthroplasty COMPARISON: None Impression: 5 surgical spot views were performed. These document right total hip joint prosthesis placement. Fluoroscopy time was 0.32 minutes.
--- NOTE | 2024-08-11 16:35 | NUR ---
ORTHO COORDINATOR: TEACHING REGARDING DVT AND PNEUMONIA PREVENTION, PAIN EXPECTATIONS AND PAIN MANAGEMENT. PATIENT IN BED, FAMILY AT BEDSIDE. B SCD SLEEVES IN PLACE AND FUNCTIONING. PATIENT LEFT INCENTIVE SPIROMETER AT HOME, WILL NOTIFY RESPIRATORY THERAPY. PHYSICAL THERAPY AT BEDSIDE. WILL CONTINUE TEACHING TOMORROW.
--- NOTE | 2024-08-11 16:40 | NUR ---
Order received and patient seen in rm [id number]. Patient noted incontinent during PT eval. Patient unable to straighten R knee completely in standing. Only tolerated transfers today. Nursing informed not to walk patient to the bathroom until seen by PT in the am. PT team to follow. Meghan nurse informed. Addendum: 08/11/24 at 1708 by KIM KAY PT Amended: Links added.
--- NOTE | 2024-08-11 17:00 | NUR ---
ORTHO COORDINATOR: CALLED RESPIRATORY THERAPY FOR INCENTIVE SPIROMETER AND EVALUATION. RESPIRATORY THERAPY ACKNOWLEDGED COMMUNICATION.
[2024-08-11] MEDS: ceFAZolin SODIUM 2 GM VIAL IVP SCH (18:43)
[2024-08-11] MEDS: 0.9%NACL 1000ML 1,000 ML IV SCH (20:00)
[2024-08-11] MEDS: ASPIRIN 325MG EC TAB PO SCH (20:46)
[2024-08-11] MEDS: doCUSate SODIUM 100 MG CAP PO SCH (20:47)
[2024-08-11] MEDS: simVASTatin 20 MG TABLET PO SCH (20:47)
[2024-08-11] MEDS: TIMOLOL MALEATE 0.5% 5 ML BOTTLE OP SCH (21:15)
[2024-08-12] VITALS (8 sets, daily range): BP systolic 128–152; BP diastolic 44–60; PULSE 64–72; RESP 16–17; TEMP 97.9–98.9; O2SAT 96–98
[2024-08-12] MEDS: ceFAZolin SODIUM 2 GM VIAL ONE (00:33)
--- NOTE | 2024-08-12 00:52 | NUR ---
nursing pm note patient alert and oriented times 3. plan of care discussed with her and she verbalized understanding. patient has intermittent right hip pain tonight relieved by pain medication. ice packs applied per protocol. patient has slept about 5 hours tonight. door open, bed alarm on, 2 side rails up. will attempt to sit the patient on the chair in the am as ordered. will continue to monitor patient.
[2024-08-12] MEDS: HYDROcodone/APAP 5/325 1 TAB TABLET PO PRN (03:10)
--- NOTE | 2024-08-12 05:00 | NUR ---
retention patient having urgency to void and cannot. I bladder scanned her and she had 800 ml of urine in her bladder. I straight cathed her and let dr. gonzalez know. She is aware and ordered to remove the catheter. the patient is due to void again.
[2024-08-12 05:31] LABS: HEMATOCRIT 25.2 % (36-48); MEAN CORPUSCULAR HEMOGLOBIN 28.7 pg (27.0-33.0); MEAN CORPUSCULAR HGB CONC 32.5 g/dL (32.0-36.0); MEAN CORPUSCULAR VOLUME 88.1 fL (79-99); RED BLOOD CELL COUNT(AUTO) 2.86 MIL/uL (4.00-5.50); RED CELL DISTRIBUTION WIDTH 16.9 % (11.0-15.5); WHITE BLOOD COUNT (AUTO) 9.5 K/uL (4.8-10.8)
[2024-08-12 05:41] LABS: CREATININE 0.7 mg/dL (0.5-1.0); POTASSIUM 4.4 mmol/L (3.5-5.1)
[2024-08-12] MEDS: FERROUS FUMARATE 324 MG TABLET PO PRN (05:45)
[2024-08-12] MEDS: ketOROlac 15MG/ML VIAL (15MG/ML) IV PRN (05:46)
--- NOTE | 2024-08-12 07:00 | NUR ---
to chair took the patient to the chair for breakfast. she tolerated it well. scd's on, ice packs applied. no issues.
[2024-08-12] MEDS: ondanSETRON 4MG INJ IVP PRN (08:12)
[2024-08-12] MEDS: PANTOPrazole 40 MG TAB DR PO SCH (08:12)
[2024-08-12] MEDS: polyETHYLene GLYCol 3350 17 GM POWD.PACK PO SCH (08:12)
--- NOTE | 2024-08-12 13:00 | NUR ---
ORTHO COORDINATOR: REINFORCED TEACHING REGARDING PAIN MEDICATION AND PAIN EXPECTATIONS. PATIENT UP TO CHAIR. PERFORMING INCENTIVE SPIROMETRY. PATIENT CURRENTLY RATES PAIN AT 2/10. REVIEWED PAIN SCALE, PROVIDED LIST OF PAIN MEDICATIONS WITH INTERVALS. REMINDED PATIENT SHE WOULD NEED TO CALL OUT FOR PAIN MEDICATION AND PROVIDE A PAIN SCALE. 1315 REPORT TO PRIMARY NURSE. REQUESTED ULTRAM FOR PAIN LEVEL 1-3 FOR PATIENT. PRIMARY NURSE ACKNOWLEDGED COMMUNICATION.
--- NOTE | 2024-08-12 15:25 | NUR ---
[facility] CM MET WITH PT, SPOUSE, DAUGHTER THIS MORNING ASSESSMENT DONE. PATIENT IS INDEPENDENT PRIOR TO SURGERY, LIVES AT HOME WITH SPOUSE, DAUGHTER FROM OUT OF TOWN CURRENTLY HERE TEMPORARILY AND WILL STAY W/SPOUSE X 2 WEEKS. PATIENT HAS A WALKER, WHEELCHAIR, CANE, ROLLATOR WALKER. DENIES ANY OTHER EQUIPMENT/SERVICES. FEELS SAFE TO GO BACK HOME, SPOUSE AND DAUGHTER ABLE TO ASSIST WITH TRANSPORTATION AND NEEDS NECESSARY. DISCUSSED MD RECOMMENDATIONS FOR SHORT TERM REHAB AT [facility], PT AGREEABLE, CONSENT SIGNED [facility]. [facility] ONCE APPROVED. CM SENT ORDER, CLINICALS, PT, PASRR TO THE [facility] AND [facility] VIA SECURE EMAIL. CM SPOKE TO THE [facility] THIS MORNING, CAME TO VISIT PT, REP MADE AWARE PT WILL NEED FACILITY [facility] FOR TRANSFER ONCE PT READY TO [place], PER REP PT WILL NEED TO COMPLETE 3 MIDNIGHTS PRIOR TO TRANSFER, TENTATIVE TRANSFER SUNDAY. PT PENDING ACCEPTANCE. PRIMARY JEWELL GODOY MADE AWARE. DR JOHNSON UPDATED. CM TO CONTINUE TO FOLLOW UP. Addendum: 08/12/24 at 1531 by MARJORIE MORALES LVN CM Amended: Links added.
--- NOTE | 2024-08-12 17:02 | PN ---
POD 1 Urinary retention overnight. Reports too much pain and not getting out of bed with PT yesterday. Reports not passing urine since straight cath.e Passing gas. Jignesh PO. Only OOBTC x 4 hrs today. VSS, AF A&Ox3 lying in bed in NAD RLE -dressing c/d/i -calf no edema/soft/NT -intact ankle DF PT walked 60 ft this afternoon DCP is for gris A/P: 89 yo F POD 1 s/p R CARLOS ALBERTO - start mild anxiolytic - mobilize with PT - bladder scan for residual given no void - CBC/BMP in AM Vitals/Labs Vital Signs Date Time Temp Pulse Resp B/P (MAP) Pulse Ox O2 Delivery O2 Flow Rate FiO2 08/12/24 07:23 96 Room Air* 0 21 08/12/24 03:46 97.9 64 17 146/51 Laboratory Tests 08/12/24 05:18 Medications Current Medications Cefazolin Sodium 2 gm STK-MED ONCE .ROUTE Last administered on 08/11/24at 09:35; Start 08/11/24 at 06:23; Stop 08/11/24 at 06:23; Status DC Lactated Ringer's 1,000 ml @ As Directed STK-MED ONCE IV Last administered on 08/11/24at 07:43; Start 08/11/24 at 06:23; Stop 08/11/24 at 06:23; Status DC Lidocaine HCl 100 mg STK-MED ONCE .ROUTE; Start 08/11/24 at 09:01; Stop 08/11/24 at 09:01; Status DC Propofol 200 mg STK-MED ONCE IV; Start 08/11/24 at 09:01; Stop 08/11/24 at 09:02; Status DC Rocuronium [place] 50 mg STK-MED ONCE .ROUTE; Start 08/11/24 at 09:02; Stop 08/11/24 at 09:02; Status DC Fentanyl Citrate 100 mcg STK-MED ONCE .ROUTE; Start 08/11/24 at 09:02; Stop 08/11/24 at 09:02; Status DC Midazolam HCl 2 mg STK-MED ONCE .ROUTE; Start 08/11/24 at 09:02; Stop 08/11/24 at 09:03; Status DC Ketamine HCl 500 mg STK-MED ONCE IJ; Start 08/11/24 at 09:11; Stop 08/11/24 at 09:12; Status DC Ephedrine Sulfate 50 mg STK-MED ONCE .ROUTE; Start 08/11/24 at 09:33; Stop 08/11/24 at 09:33; Status DC Sodium Chloride 1,000 ml @ 100 mls/hr Q10H IV Last administered on 08/11/24at 20:47; Start 08/11/24 at 10:00; Stop 08/12/24 at 00:55; Status DC Polyethylene Glycol 17 gm DAILY PO Last administered on 08/12/24at 08:12; Start 08/12/24 at 09:00; Stop 09/11/24 at 08:59 Bisacodyl 10 mg DAILY PRN RC; Start 08/14/24 at 10:00; Stop 09/13/24 at 09:59 Ketorolac Tromethamine 15 mg Q6H PRN IV Last administered on 08/12/24at 09:49; Start 08/11/24 at 10:00; Stop 08/16/24 at 09:59 Ferrous Fumarate 324 mg DAILY PRN PO Last administered on 08/12/24at 05:45; Start 08/11/24 at 10:00; Stop 09/10/24 at 09:59 Calcium Carbonate 500 mg Q12H PRN PO; Start 08/11/24 at 10:00; Stop 09/10/24 at 09:59 Ondansetron HCl 4 mg Q6H PRN IVP Last administered on 08/12/24at 08:12; Start 08/11/24 at 10:00; Stop 09/10/24 at 09:59 Cefazolin Sodium 2 gm Q8H IVP Last administered on 08/12/24at 00:31; Start 08/11/24 at 15:00; Stop 08/11/24 at 23:01; Status DC Gabapentin 100 mg TID PO Last administered on 08/12/24at 08:12; Start 08/11/24 at 14:00; Stop 09/10/24 at 13:59 Cyclobenzaprine HCl 5 mg Q8H PRN PO Last administered on 08/11/24at 14:03; Start 08/11/24 at 10:00; Stop 09/10/24 at 09:59 Docusate Sodium 100 mg BID PO Last administered on 08/12/24at 08:12; Start 08/11/24 at 21:00; Stop 09/10/24 at 20:59 Ketorolac Tromethamine 15 mg Q8H IV; Start 08/11/24 at 10:00; Stop 08/11/24 at 09:56; Status DC Aspirin 325 mg BID PO Last administered on 08/12/24at 08:12; Start 08/11/24 at 21:00; Stop 09/10/24 at 20:59 Potassium Chloride 100 ml @ 100 mls/hr AD PRN IV; Start 08/11/24 at 10:00; Stop 09/10/24 at 09:59 Potassium Chloride 20 meq AD PRN PO; Start 08/11/24 at 10:00; Stop 09/10/24 at 09:59 Potassium Chloride 20 meq AD PRN PO; Start 08/11/24 at 10:00; Stop 09/10/24 at 09:59 Tramadol HCl 50 mg Q6H PRN PO; Start 08/11/24 at 10:00; Stop 08/16/24 at 09:59 Acetaminophen/ Hydrocodone Bitart Q4H PRN PO Last administered on 08/12/24at 03:10; Start 08/11/24 at 10:00; Stop 08/16/24 at 09:59 Simvastatin 20 mg HS PO Last administered on 08/11/24at 20:47; Start 08/11/24 at 21:00; Stop 09/10/24 at 20:59 Pantoprazole Sodium 40 mg DAILY PO Last administered on 08/12/24at 08:12; Start 08/12/24 at 09:00; Stop 09/11/24 at 08:59 Timolol Maleate HS OP Last administered on 08/11/24at 21:15; Start 08/11/24 at 21:00; Stop 09/10/24 at 20:59 Tranexamic Acid 1,000 mg STK-MED ONCE .ROUTE; Start 08/11/24 at 09:51; Stop 08/11/24 at 09:52; Status DC Ketorolac Tromethamine 15 mg Q8H IV Last administered on 08/11/24at 20:47; Start 08/11/24 at 10:30; Stop 08/12/24 at 02:31; Status DC Fentanyl Citrate 250 mcg STK-MED ONCE IV; Start 08/11/24 at 10:14; Stop 08/11/24 at 10:14; Status DC Hydralazine HCl 20 mg STK-MED ONCE .ROUTE; Start 08/11/24 at 10:57; Stop 08/11/24 at 11:00; Status DC Glycopyrrolate 1 mg STK-MED ONCE .ROUTE; Start 08/11/24 at 12:08; Stop 08/11/24 at 12:08; Status DC Neostigmine Methylsulfate 10 mg STK-MED ONCE IV; Start 08/11/24 at 12:08; Stop 08/11/24 at 12:08; Status DC Fentanyl Citrate 100 mcg STK-MED ONCE .ROUTE; Start 08/11/24 at 12:22; Stop 08/11/24 at 12:28; Status DC Fentanyl Citrate 100 mcg STK-MED ONCE .ROUTE Last administered on 08/11/24at 13:14; Start 08/11/24 at 12:50; Stop 08/11/24 at 12:51; Status DC Acetaminophen 100 ml @ As Directed STK-MED ONCE .ROUTE Last administered on 08/11/24at 13:14; Start 08/11/24 at 13:06; Stop 08/11/24 at 13:06; Status DC Ketorolac Tromethamine 15 mg STK-MED ONCE .ROUTE; Start 08/11/24 at 13:18; Stop 08/11/24 at 13:22; Status DC Ondansetron HCl 4 mg STK-MED ONCE .ROUTE Last administered on 08/11/24at 13:40; Start 08/11/24 at 13:38; Stop 08/11/24 at 13:39; Status DC Hydromorphone HCl 1 mg STK-MED ONCE .ROUTE Last administered on 08/11/24at 15:21; Start 08/11/24 at 14:29; Stop 08/11/24 at 14:29; Status DC Cefazolin Sodium 2 gm STK-MED ONCE .ROUTE; Start 08/12/24 at 00:29; Stop 08/12/24 at 00:29; Status DC IRINA JOHNSON MD Aug 12, 2024 17:02
[2024-08-12] MEDS ORDERED: hydrOXYzine 10 MG TABLET PO PRN (17:30)
--- NOTE | 2024-08-13 02:25 | NUR ---
nursing pm note patient alert and oriented times 3. plan of care discussed with her and she verbalized understanding. patient refusing both the bed gonzales and the toilet to urinate tonight. she does not want to get up because "I have too much pain," she said. We placed a purewick on her to track her urine output since she had retention last night. She has been urinating dark lola urine on the purewick. Ice packs applied per protocol. Encouraged the incentive spirometer and she is practicing it. door open, bed alarm on, 2 side rails up. will continue to monitor patient. will take patient to the chair in am.
--- NOTE | 2024-08-13 03:54 | NUR ---
panfilo garcia and I bathed the patient on the bed. no issues.
[2024-08-13 03:55] VITALS: BP 158/56; PULSE 66; RESP 18; TEMP 98.2
[2024-08-13 04:41] LABS: BASOPHILS # (AUTO) 0.02 K/uL (0.00-0.20); BASOPHILS % (AUTO) 0.2 % (0.0-5.0); EOSINOPHILS # (AUTO) 0.02 K/uL (0.00-0.70); EOSINOPHILS % (AUTO) 0.2 % (0.0-8.0); HEMATOCRIT 24.7 % (36-48); IMMATURE GRANULOCYTE ABSOLUTE 0.13 K/uL (0-1); LYMPHOCYTES # (AUTO) 1.1 K/uL (1.0-4.8); LYMPHOCYTES % (AUTO) 9.1 % (21.0-51.0); MEAN CORPUSCULAR HEMOGLOBIN 28.8 pg (27.0-33.0); MEAN CORPUSCULAR HGB CONC 33.2 g/dL (32.0-36.0); MEAN CORPUSCULAR VOLUME 86.7 fL (79-99); MONOCYTES # (AUTO) 4.8 K/uL (0.1-1.0); MONOCYTES % (AUTO) 38.9 % (3.0-13.0); NEUTROPHILS # (AUTO) 6.3 K/uL (1.8-7.7); NEUTROPHILS % (AUTO) 50.5 % (40.0-77.0); PLATELET COUNT (AUTO) 115 K/uL (130-400); RED BLOOD CELL COUNT(AUTO) 2.85 MIL/uL (4.00-5.50); RED CELL DISTRIBUTION WIDTH 16.9 % (11.0-15.5); WHITE BLOOD COUNT (AUTO) 12.4 K/uL (4.8-10.8)
[2024-08-13 04:49] LABS: CREATININE 0.7 mg/dL (0.5-1.0); POTASSIUM 4.1 mmol/L (3.5-5.1)
[2024-08-13 08:00] VITALS: BP 129/56; PULSE 67; RESP 18; TEMP 98.2; O2SAT 98
[2024-08-13 12:00] VITALS: BP 183/68; PULSE 60; RESP 18; TEMP 98.2
--- NOTE | 2024-08-13 12:47 | PN ---
POD 1 Purewick placed due to patient refusing bedpan or assistance to toilet overnight. Reports too much pain and not getting out of bed with PT/nursing. PT reports that she has walked. Nursing reports that she refuses to mobilize with them and will not stay up in the chair. VSS, AF A&Ox3 lying in bed in NAD with purewick in place RLE -dressing c/d/i -calf no edema/soft/NT -intact ankle DF PT reports she walked this morning and they left her sitting at bedside DCP is for gris A/P: 89 yo F POD 2 s/p R CARLOS ALBERTO, asymptomatic acute blood loss anemia - start mild anxiolytic - mobilize with PT - labs showed no worsening anemia and ok kidney function - I discussed with the patient that we will not continue using a purewick, catheter, nor other voiding device. I explained that she must get out of bed with nursing to use the toilet. - I explained her low grade temperature this morning is concerning for early pneumonia. - I reminded the patient that she is not sick and should not/does not need to lie in bed 3/4 of the day. - We discussed the mortality from hip fractures coming from lying in bed causing bed sores, pneumonia, and UTIs. This was elective and she must mobilize. Vitals/Labs Vital Signs Date Time Temp Pulse Resp B/P (MAP) Pulse Ox O2 Delivery O2 Flow Rate FiO2 08/13/24 08:00 98.2 67 18 129/56 98 Room Air 08/13/24 03:55 21 08/12/24 19:20 0 Laboratory Tests 08/13/24 04:30 Medications Current Medications Cefazolin Sodium 2 gm STK-MED ONCE .ROUTE Last administered on 08/11/24at 09:35; Start 08/11/24 at 06:23; Stop 08/11/24 at 06:23; Status DC Lactated Ringer's 1,000 ml @ As Directed STK-MED ONCE IV Last administered on 08/11/24at 07:43; Start 08/11/24 at 06:23; Stop 08/11/24 at 06:23; Status DC Lidocaine HCl 100 mg STK-MED ONCE .ROUTE; Start 08/11/24 at 09:01; Stop 08/11/24 at 09:01; Status DC Propofol 200 mg STK-MED ONCE IV; Start 08/11/24 at 09:01; Stop 08/11/24 at 09:02; Status DC Rocuronium [place] 50 mg STK-MED ONCE .ROUTE; Start 08/11/24 at 09:02; Stop 08/11/24 at 09:02; Status DC Fentanyl Citrate 100 mcg STK-MED ONCE .ROUTE; Start 08/11/24 at 09:02; Stop 08/11/24 at 09:02; Status DC Midazolam HCl 2 mg STK-MED ONCE .ROUTE; Start 08/11/24 at 09:02; Stop 08/11/24 at 09:03; Status DC Ketamine HCl 500 mg STK-MED ONCE IJ; Start 08/11/24 at 09:11; Stop 08/11/24 at 09:12; Status DC Ephedrine Sulfate 50 mg STK-MED ONCE .ROUTE; Start 08/11/24 at 09:33; Stop 08/11/24 at 09:33; Status DC Sodium Chloride 1,000 ml @ 100 mls/hr Q10H IV Last administered on 08/11/24at 20:47; Start 08/11/24 at 10:00; Stop 08/12/24 at 00:55; Status DC Polyethylene Glycol 17 gm DAILY PO Last administered on 08/13/24at 08:49; Start 08/12/24 at 09:00; Stop 09/11/24 at 08:59 Bisacodyl 10 mg DAILY PRN RC; Start 08/14/24 at 10:00; Stop 09/13/24 at 09:59 Ketorolac Tromethamine 15 mg Q6H PRN IV Last administered on 08/13/24at 05:52; Start 08/11/24 at 10:00; Stop 08/16/24 at 09:59 Ferrous Fumarate 324 mg DAILY PRN PO Last administered on 08/13/24at 05:52; Start 08/11/24 at 10:00; Stop 09/10/24 at 09:59 Calcium Carbonate 500 mg Q12H PRN PO; Start 08/11/24 at 10:00; Stop 09/10/24 at 09:59 Ondansetron HCl 4 mg Q6H PRN IVP Last administered on 08/12/24at 08:12; Start 08/11/24 at 10:00; Stop 09/10/24 at 09:59 Cefazolin Sodium 2 gm Q8H IVP Last administered on 08/12/24at 00:31; Start 08/11/24 at 15:00; Stop 08/11/24 at 23:01; Status DC Gabapentin 100 mg TID PO Last administered on 08/13/24at 08:49; Start 08/11/24 at 14:00; Stop 09/10/24 at 13:59 Cyclobenzaprine HCl 5 mg Q8H PRN PO Last administered on 08/12/24at 19:45; Start 08/11/24 at 10:00; Stop 09/10/24 at 09:59 Docusate Sodium 100 mg BID PO Last administered on 08/13/24at 08:49; Start 08/11/24 at 21:00; Stop 09/10/24 at 20:59 Ketorolac Tromethamine 15 mg Q8H IV; Start 08/11/24 at 10:00; Stop 08/11/24 at 09:56; Status DC Aspirin 325 mg BID PO Last administered on 08/13/24at 08:49; Start 08/11/24 at 21:00; Stop 09/10/24 at 20:59 Potassium Chloride 100 ml @ 100 mls/hr AD PRN IV; Start 08/11/24 at 10:00; Stop 09/10/24 at 09:59 Potassium Chloride 20 meq AD PRN PO; Start 08/11/24 at 10:00; Stop 09/10/24 at 09:59 Potassium Chloride 20 meq AD PRN PO; Start 08/11/24 at 10:00; Stop 09/10/24 at 09:59 Tramadol HCl 50 mg Q6H PRN PO; Start 08/11/24 at 10:00; Stop 08/16/24 at 09:59 Acetaminophen/ Hydrocodone Bitart Q4H PRN PO Last administered on 08/13/24at 02:53; Start 08/11/24 at 10:00; Stop 08/16/24 at 09:59 Simvastatin 20 mg HS PO Last administered on 08/12/24at 19:45; Start 08/11/24 at 21:00; Stop 09/10/24 at 20:59 Pantoprazole Sodium 40 mg DAILY PO Last administered on 08/13/24at 08:50; Start 08/12/24 at 09:00; Stop 09/11/24 at 08:59 Timolol Maleate HS OP Last administered on 08/12/24at 19:45; Start 08/11/24 at 21:00; Stop 09/10/24 at 20:59 Tranexamic Acid 1,000 mg STK-MED ONCE .ROUTE; Start 08/11/24 at 09:51; Stop 08/11/24 at 09:52; Status DC Ketorolac Tromethamine 15 mg Q8H IV Last administered on 08/11/24at 20:47; Start 08/11/24 at 10:30; Stop 08/12/24 at 02:31; Status DC Fentanyl Citrate 250 mcg STK-MED ONCE IV; Start 08/11/24 at 10:14; Stop 08/11/24 at 10:14; Status DC Hydralazine HCl 20 mg STK-MED ONCE .ROUTE; Start 08/11/24 at 10:57; Stop 08/11/24 at 11:00; Status DC Glycopyrrolate 1 mg STK-MED ONCE .ROUTE; Start 08/11/24 at 12:08; Stop 08/11/24 at 12:08; Status DC Neostigmine Methylsulfate 10 mg STK-MED ONCE IV; Start 08/11/24 at 12:08; Stop 08/11/24 at 12:08; Status DC Fentanyl Citrate 100 mcg STK-MED ONCE .ROUTE; Start 08/11/24 at 12:22; Stop 08/11/24 at 12:28; Status DC Fentanyl Citrate 100 mcg STK-MED ONCE .ROUTE Last administered on 08/11/24at 13:14; Start 08/11/24 at 12:50; Stop 08/11/24 at 12:51; Status DC Acetaminophen 100 ml @ As Directed STK-MED ONCE .ROUTE Last administered on 08/11/24at 13:14; Start 08/11/24 at 13:06; Stop 08/11/24 at 13:06; Status DC Ketorolac Tromethamine 15 mg STK-MED ONCE .ROUTE; Start 08/11/24 at 13:18; Stop 08/11/24 at 13:22; Status DC Ondansetron HCl 4 mg STK-MED ONCE .ROUTE Last administered on 08/11/24at 13:40; Start 08/11/24 at 13:38; Stop 08/11/24 at 13:39; Status DC Hydromorphone HCl 1 mg STK-MED ONCE .ROUTE Last administered on 08/11/24at 15:21; Start 08/11/24 at 14:29; Stop 08/11/24 at 14:29; Status DC Cefazolin Sodium 2 gm STK-MED ONCE .ROUTE; Start 08/12/24 at 00:29; Stop 08/12/24 at 00:29; Status DC Hydroxyzine HCl 10 mg TID PRN PO; Start 08/12/24 at 17:30; Stop 09/11/24 at 17:29 IRINA JOHNSON MD Aug 13, 2024 12:47
[2024-08-13 16:00] VITALS: BP 109/47; PULSE 64; RESP 18; TEMP 98.5
[2024-08-13 20:00] VITALS: BP 131/57; PULSE 68; RESP 16; TEMP 97.7
[2024-08-13 22:15] VITALS: O2SAT 95
[2024-08-14] VITALS: BP 149/72; PULSE 59; RESP 18; TEMP 98
[2024-08-14 04:00] VITALS: BP 147/65; PULSE 60; RESP 19; TEMP 98.3
[2024-08-14 08:00] VITALS: BP 138/72; PULSE 60; RESP 18; TEMP 97.9; O2SAT 95
[2024-08-14] MEDS ORDERED: BisaCODYL 10 MG SUPP.RECT RC PRN (10:00)
[2024-08-14] MEDS ORDERED: GABA100C PO (10:11)
[2024-08-14] MEDS ORDERED: CYCL-309 PO (10:11)
[2024-08-14] MEDS ORDERED: HYDR-4060 PO (10:11)
[2024-08-14] MEDS ORDERED: DOCU-116 PO (10:11)
--- NOTE | 2024-08-14 10:15 | DS ---
Discharge Summary Assessment/Plan: ASSESSMENT: POD 3 s/p R CARLOS ALBERTO, symptomatic blood loss anemia PLAN: see DC instructions Discharge Instructions: Begin working with PT at the facility. WBAT. Remembered do not flex the hip more than 90 and do not cross midline at the knees or ankles for the 1st six weeks. If you are side sleeper place a pillow between the knees and ankles to prevent the legs from crossing. Dressing may be removed today and left open to air. Showers ok allowing soap and water to run over the wound. Pat dry. Do not submerge wound in tub/pool. Do not apply ointments. Do not apply Betadine. Do not apply peroxide. Ice packs to decrease pain/swelling. Prescriptions have been sent to the pharmacy: *[place]art 5/325mg 1-2 tab every 6 hours as needed for severe pain. (please call for refills) Cyclobenzaprine 5mg 1 tab every 8 hours as needed for muscle spasm pain. Gabapentin 100mg 1 tab every 8 hours (may discontinue if drowsy). Colace 100mg 1 tab orally twice a day as needed for constipation. Restart your home Aspirin and Warfarin doses. Call for a follow-up appointment in 2-3 weeks at [facility]. Home Medications: Active Scripts Hydrocodone/Acetaminophen (Hydrocodon-Acetaminophen 5-325) 5 Mg-325 Mg Tablet, 1-2 TAB PO Q4H PRN for MODERATE/SEVERE PAIN LEVEL, #56 TAB 0 Refills Prov:IRINA JOHNSON MD 08/14/24 Acetaminophen with Codeine (Acetaminophen-Cod #3 Tablet) 300 Mg-30 Mg Tablet, 1 TAB PO Q6H PRN for PAIN, #20 TAB 0 Refills Prov:NII LEVY MD 08/02/24 Reported Medications [Heparin] No Conflict Check, 5000 UNIT SQ SAT/SUN 08/07/24 Aspirin (Aspirin) 81 Mg Tab.chew, 1 TAB PO DAILY for 30 Days, #30 TAB 0 Refills 08/07/24 Timolol Maleate (Timolol Maleate) 0.5 % Christina.gel, 1 DROP OP HS, #15 ML 0 Refills 08/07/24 Simvastatin (Simvastatin) 20 Mg Tablet, 20 MG PO HS, TAB 03/27/24 Warfarin Sodium (Warfarin Sodium) 2.5 Mg Tablet, 2.5 MG PO NOON, TAB EVERY TUE/FRANK/SAT 03/27/24 Warfarin Sodium (Warfarin Sodium) 5 Mg Tablet, 2.5 MG PO QODAY, TAB EVERY SUN/SUN/SUN/SUN 12/30/21 Omeprazole (Omeprazole) 20 Mg Capsule.dr, 20 MG PO DAILY, CAP 12/29/21 Discontinued Reported Medications Carvedilol (Carvedilol) 6.25 Mg Tablet, 6.25 MG PO BID, TAB 12/29/21 Discontinued Scripts Peg 3350/Na Sulf,Bicarb,Cl/KCl (Golytely/Colyte Soln) 236-22.74G Soln, 4000 ML PO AD, #1 UNIT MIXED BOTTLE DIRECTED WITH WATER. DRINK ONE CUP EVERY 10-15 MINUTES UNTIL STOOLS ARE CLEAR. Prov:MARRY GIBSON NP 06/01/24 IRINA JOHNSON MD Aug 14, 2024 10:15
[2024-08-14 12:00] VITALS: BP 142/66; PULSE 64; RESP 18; TEMP 99.2
--- NOTE | 2024-08-14 12:00 | NUR ---
ORTHO COORDINATOR: REINFORCED TEACHING REGARDING AMBULATION, PAIN MANAGEMENT AND INCENTIVE SPIROMETRY. PATIENT IN BED, REPORTS BEING UP TO CHAIR EARLIER. PATIENT TEARFUL, DENIES PAIN. EXPRESSED FEELINGS OF BEING A BURDEN. REASSURANCE PROVIDED. PATIENT ENCOURAGED TO AMBULATE TO RESTROOM AND BEGIN MOVING. REVIEWED PAIN MEDICATIONS AND WHAT WAS PROVIDED FOR EACH NUMERIC VALUE OF PAIN. REASSURED HER REHAB WOULD HAVE THE SAME MEDICATION. INSTRUCTED HER THEY WOULD ASKER HER TO AMBULATE TO VOID AND ALTER FROM UP TO CHAIR TO BED REQUESTED WHILE IN THE FACILITY. STRESSED THE IMPORTANCE OF HYDRATING AND ENCOURAGED PATIENT TO GET UP TO SHOWER. PATIENT VERBALIZED UNDERSTANDING. BY END OF CONVERSATION, TEARS RESOLVED. NO ADDITIONAL QUESTIONS/CONCERNS AT THIS TIME.
[2024-08-14] MEDS: WARFARIN SODIUM 5 MG TAB PO SCH (13:27)
--- NOTE | 2024-08-14 13:57 | NUR ---
patient discharged TO REHAB FACILITY VIA [facility] , REPORT CALLED TO ANGELA PERDUE AT [facility].REPORTED PATIENT RESTARTED ON COUMADIN TODAY.
== END 2024-08-14 13:57 | DRG 470 ==
LOC: DAH 06:25 → OBSVTOIN 06:26 → DAH 06:26 → DAHIP 06:26 → EDSTATUS 10:00 → 4CH 16:00
PROVIDERS: ADMIT Student in an Organized Health Care Education/Training Program; ATTEND Student in an Organized Health Care Education/Training Program
PROC: 30233N1 Transfusion of Nonautologous Red Blood Cells into Peripheral Vein, Percutaneous Approach (ICD-10-PCS; 2024-08-11)
PROC: 0SR90JA Replacement of Right Hip Joint with Synthetic Substitute, Uncemented, Open Approach (ICD-10-PCS; principal; 2024-08-11 08:58)
DX: M16.11 Unilateral primary osteoarthritis, right hip (principal); D62 Acute posthemorrhagic anemia; Z79.899 Other long term (current) drug therapy
CPT/HCPCS: 36415; 73503; 73521; 80048; 81001; 82040; 84134; 85025; 85027; 85610; 85730; 86140; 86850; 86900; 86901; 86923; 87086; 87641; C1776; G0378; J0360; J1171; J1885; J2003; J2250; J2405; J2704; J2710; J3010; J3490; J7120; P9016; A4213; A4215; A4216; A4221; A4222; A4223; A4649; A4663; A4930; A5120; A6255; J0690